=== PATIENT | male | born 1990 | race Caucasian/White ===

== ENCOUNTER 2016-08-07 02:26 | Emergency (ER) | payer SELFPAY ==
[~2016-08-07] VITALS: Ht 167.6 cm; Wt 54.0 kg
[~2016-08-07 02:26] MED LIST: AC325T; BSP10T PO; CLIN300C3 PO; CLOR15TA PO; CLOR7.5T3 PO; FOLI1TAB24 PO; HYDR1TAB PO; HYDR1TAB90; MAGN400T6 PO; MULT-1009 PO; MULT-974 PO; QTP25T PO; RT-ALBUINH IH; THIA100T12 PO
[2016-08-07] MEDS ORDERED: NS IV 1000 ML 1,000 ML IV ONE (02:42)
[2016-08-07] MEDS ORDERED: LORazepam INJ 2 MG/ML (ATIVAN) VIAL IVP ONE (02:45)
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
[2016-08-07 03:05] LABS: BASOPHILS # (AUTO) 0.1 10^3/uL (0.0-0.1); BASOPHILS % (AUTO) 1 % (0-10); EOSINOPHILS # (AUTO) 0.1 10^3/uL (0.0-0.3); EOSINOPHILS % (AUTO) 1 % (0-10); LYMPHOCYTES # (AUTO) 2.5 X 10^3 (1.0-4.0); LYMPHOCYTES % (AUTO) 24 % (12-44); MEAN CORPUSCULAR HEMOGLOBIN 32 PG (25-34); MEAN CORPUSCULAR HGB CONC 35 G/DL (32-36); MEAN CORPUSCULAR VOLUME 91 FL (80-99); MEAN PLATELET VOLUME 8.7 FL (7.4-10.4); MONOCYTES # (AUTO) 0.9 X 10^3 (0.0-1.0); MONOCYTES % (AUTO) 9 % (0-12); NEUTROPHILS # (AUTO) 6.8 X 10^3 (1.8-7.8); NEUTROPHILS % (AUTO) 65 % (42-75); PLATELET COUNT 301 10^3/uL (130-400); RED BLOOD COUNT 5.09 10^6/uL (4.35-5.85); RED CELL DISTRIBUTION WIDTH 12.3 % (10.0-14.5); WHITE BLOOD COUNT 10.4 10^3/uL (4.3-11.0)
[2016-08-07 03:25] LABS: ALANINE AMINOTRANSFERASE 18 U/L (0-55); ALBUMIN 4.7 G/DL (3.2-4.5); ANION GAP 12 MMOL/L (5-14); ASPARTATE AMINO TRANSFERASE 13 U/L (5-34); BILIRUBIN,TOTAL 0.4 MG/DL (0.1-1.0); BLOOD UREA NITROGEN 19 MG/DL (7-18); BUN/CREATININE RATIO 19; CALCIUM 9.6 MG/DL (8.5-10.1); CARBON DIOXIDE 24 MMOL/L (21-32); CHLORIDE 103 MMOL/L (98-107); CREATININE SERUM 1.02 MG/DL (0.60-1.30); GFR ESTIMATED > 60; GLUCOSE 88 MG/DL (70-105); MAGNESIUM 2.4 MG/DL (1.8-2.4); POTASSIUM 4.5 MMOL/L (3.6-5.0); SALICYLATE < 5.0 MG/DL (5.0-20.0); SODIUM 139 MMOL/L (135-145); TOTAL PROTEIN 7.4 G/DL (6.4-8.2)
[2016-08-07 03:30] LABS: ACETAMINOPHEN < 10 UG/ML (10-30); ALCOHOL < 10 MG/DL (<10)
[2016-08-07 04:02] VITALS: BP 126/73
== END 2016-08-07 04:02 | disposition home or self-care (01) ==
LOC: EDUNIT# 02:26 → ER 02:30
DX: F15.10 Other stimulant abuse, uncomplicated (principal); F22 Delusional disorders; F12.10 Cannabis abuse, uncomplicated; F17.210 Nicotine dependence, cigarettes, uncomplicated
CPT/HCPCS: 36415; 80053; 80306; 80320; 80329; 83735; 84443; 85025; 96361; 96374

== ENCOUNTER 2016-11-15 13:41 | Emergency (ER) | payer SELFPAY ==
[~2016-11-15] VITALS: Ht 172.7 cm; Wt 70.3 kg
[2016-11-15] MEDS ORDERED: CLON1TAB3 (13:50)
[2016-11-15] MEDS ORDERED: CEPH-507 PO (14:06)
[2016-11-15] MEDS ORDERED: SULF1TAB35 PO (14:06)
--- NOTE | 2016-11-15 14:06 | ED Integumentary General ---
General Chief Complaint: Skin/Wound Problems Stated Complaint: ABSCESS ON RIGHT HAND Nursing Triage Note: PATIENT REPORTS CUTTING R HAND ON A PIECE OF METAL 6 DAYS AGO. PATIENT REPORTS THE WOUND IS RED AND HAS BEEN DRAINING Source: patient Exam Limitations: no limitations History of Present Illness Time seen by provider: 14:02 Initial Comments To ER with a red laceration to the dorsal fifth MCP joint of the right hand. States that he cut this on a piece of sheet metal about a week ago. He did get some purulent appearing drainage out of this this morning. Timing/Duration: week Location: extremities Allergies and Home Medications Allergies Coded Allergies: No Known Drug Allergies (Unverified , 11/15/16) Home Medications Clonazepam 1 Mg Tablet, #84 (Reported) Constitutional: see HPI EENTM: see HPI Respiratory: no symptoms reported Cardiovascular: no symptoms reported Genitourinary: no symptoms reported Musculoskeletal: see HPI Skin: see HPI Psychiatric/Neurological: No Symptoms Reported Endocrine: No Symptoms Reported Past Kymwmdx-Ayjuwr-Dxayir Hx Patient Social History Alcohol Use: Rarely Uses Recreational Drug Use: No Drug of Choice: METH Smoking Status: Current Everyday Smoker Type Used: Cigarettes Recent Foreign Travel: No Contact w/Someone Who Travel: No Recent Infectious Disease Expo: No Recent Hopitalizations: No Immunizations Up To Date Tetanus Booster (TDap): Unknown Seasonal Allergies Seasonal Allergies: No Surgeries HX Surgeries: Yes (CYST ) Surgeries: Orthopedic Respiratory Hx Respiratory Disorders: Yes Respiratory Disorders: Asthma Cardiovascular Hx Cardiac Disorders: No Neurological Hx Neurological Disorders: No Reproductive System Hx Reproductive Disorders: No Genitourinary Hx Genitourinary Disorders: No Gastrointestinal Hx Gastrointestinal Disorders: No Musculoskeletal Hx Musculoskeletal Disorders: No Endocrine Hx Endocrine Disorders: No HEENT HX ENT Disorders: No Cancer Hx Cancer: No Psychosocial Hx Psychiatric Problems: Yes (polysubstance abuse) Behavioral Health Disorders: Anxiety, Bipolar, Schizophrenia Integumentary HX Skin/Integumentary Disorder: No Blood Transfusions Hx Blood Disorders: No Family Medical History Significant Family History: No Pertinent Family Hx, Psychiatric Problems Physical Exam Vital Signs Vital Sign - Last 12Hours 11/15/16 13:47 Temp 98.4 Pulse 94 Resp 18 B/P (MAP) 125/87 Pulse Ox 99 O2 Delivery Room Air Capillary Refill : Less Than 3 Seconds General Appearance: WD/WN, no apparent distress HEENT: PERRL/EOMI, normal ENT inspection Neck: non-tender, full range of motion Respiratory: no respiratory distress, no accessory muscle use Gastrointestinal: non tender, soft Neurologic/Psychiatric: alert, normal mood/affect Skin: normal color, warm/dry, other (0.5-1 cm laceration over the dorsal aspect of the right MCP joint. He is able to fully make a fist and extend the fingers against resistance. I'm only able to express a minimal amount of serosanguineous appearing drainage. Culture of this was collected and sent to lab. There is minimal surrounding erythema, certainly no cellulitis) Progress/Results/Core Measures Results/Orders My Orders Orders - LILIA VELARDE APRN Wound Culture (11/15/16 14:01) Vital Signs/I&O Vital Sign - Last 12Hours 11/15/16 13:47 Temp 98.4 Pulse 94 Resp 18 B/P (MAP) 125/87 Pulse Ox 99 O2 Delivery Room Air Blood Pressure Mean: 100 Departure Impression Impression: Primary Impression: Infected laceration Disposition: 01 HOME, SELF-CARE Condition: Stable Departure-Patient Inst. Decision time for Depature: 14:04 Referrals: [facility] (PCP/Family) Primary Care Physician Patient Instructions: Laceration Infection Add. Discharge Instructions: 1. Antibiotics as directed 2. Warm compresses to this area you may take a shower and let water run over this area twice daily 3. Return to ER for any worsening 4. All discharge instructions reviewed with patient and/or family. Voiced understanding. Scripts Sulfamethoxazole/Trimethoprim (Bactrim Ds Tablet) 1 Each Tablet 1 EACH PO BID, #14 TAB Prov: LILIA VELARDE APRN 11/15/16 Cephalexin (Keflex) 500 Mg Capsule 500 MG PO QID, #28 CAP Prov: LILIA VELARDE APRN 11/15/16 LILIA VELARDE APRN Nov 15, 2016 14:06
[2016-11-15 14:12] VITALS: BP 125/87
== END 2016-11-15 14:12 | disposition home or self-care (01) ==
LOC: EDUNIT# 13:41 → ER 13:45
DX: L08.9 Local infection of the skin and subcutaneous tissue, unspecified (principal); S61.411A Laceration without foreign body of right hand, initial encounter; F17.210 Nicotine dependence, cigarettes, uncomplicated; W45.8XXA Other foreign body or object entering through skin, initial encounter; Y99.8 Other external cause status
CPT/HCPCS: 87070; 87077; 87186; 87205; 99285

== ENCOUNTER 2016-12-16 18:58 | Emergency (ER) | payer SELFPAY ==
[~2016-12-16] VITALS: Ht 172.7 cm; Wt 72.6 kg
[~2016-12-16 18:58] MED LIST changes: +CEPH-507 PO; +CLON1TAB3; +SULF1TAB35 PO
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
[2016-12-16 19:08] LABS: BASOPHILS # (AUTO) 0.1 10^3/uL (0.0-0.1); BASOPHILS % (AUTO) 1 % (0-10); EOSINOPHILS # (AUTO) 0.1 10^3/uL (0.0-0.3); EOSINOPHILS % (AUTO) 1 % (0-10); LYMPHOCYTES # (AUTO) 2.6 X 10^3 (1.0-4.0); LYMPHOCYTES % (AUTO) 34 % (12-44); MEAN CORPUSCULAR HEMOGLOBIN 31 PG (25-34); MEAN CORPUSCULAR HGB CONC 34 G/DL (32-36); MEAN CORPUSCULAR VOLUME 92 FL (80-99); MEAN PLATELET VOLUME 9.5 FL (7.4-10.4); MONOCYTES % (AUTO) 12 % (0-12); NEUTROPHILS % (AUTO) 52 % (42-75); PLATELET COUNT 257 10^3/uL (130-400); RED CELL DISTRIBUTION WIDTH 12.1 % (10.0-14.5); WHITE BLOOD COUNT 7.8 10^3/uL (4.3-11.0)
[2016-12-16 19:40] LABS: ALANINE AMINOTRANSFERASE 14 U/L (0-55); ALBUMIN 4.5 G/DL (3.2-4.5); ANION GAP 11 MMOL/L (5-14); ASPARTATE AMINO TRANSFERASE 14 U/L (5-34); BILIRUBIN,TOTAL 0.5 MG/DL (0.1-1.0); BLOOD UREA NITROGEN 21 MG/DL (7-18); BUN/CREATININE RATIO 21; CALCIUM 9.5 MG/DL (8.5-10.1); CARBON DIOXIDE 23 MMOL/L (21-32); CHLORIDE 106 MMOL/L (98-107); GFR ESTIMATED > 60; GLUCOSE 95 MG/DL (70-105); POTASSIUM 3.8 MMOL/L (3.6-5.0); SODIUM 140 MMOL/L (135-145)
[2016-12-16 19:54] LABS: BILIRUBIN,URINE NEGATIVE (NEGATIVE); KETONES,URINE NEGATIVE (NEGATIVE); LEUKOCYTE ESTERASE ,URINE 1+ (NEGATIVE); NITRITE,URINE NEGATIVE (NEGATIVE); PH,URINE 6.5 (5-9); PROTEIN,URINE 1+ (NEGATIVE); UROBILINOGEN,URINE NORMAL (NORMAL)
[2016-12-16 20:02] LABS: SQUAMOUS EPITHELIAL CELL,UR RARE /HPF; WBC,URINE 0-2 /HPF
[2016-12-16 20:23] VITALS: BP 117/81
== END 2016-12-16 20:16 | disposition home or self-care (01) ==
LOC: EDUNIT# 18:58 → ER 18:59
DX: F15.188 Other stimulant abuse with other stimulant-induced disorder (principal)
CPT/HCPCS: 36415; 80053; 80306; 81000; 85025; 99283

== ENCOUNTER 2017-06-16 19:44 | Emergency (ER) | payer SELFPAY ==
[~2017-06-16] VITALS: Ht 172.7 cm; Wt 65.8 kg
[2017-06-16 20:04] LABS: BILIRUBIN,URINE NEGATIVE (NEGATIVE); KETONES,URINE NEGATIVE (NEGATIVE); LEUKOCYTE ESTERASE ,URINE 2+ (NEGATIVE); NITRITE,URINE NEGATIVE (NEGATIVE); PH,URINE 6 (5-9); PROTEIN,URINE NEGATIVE (NEGATIVE); UROBILINOGEN,URINE NORMAL (NORMAL)
--- NOTE | 2017-06-16 20:08 | ED GU-Male ---
General Chief Complaint: -Male Stated Complaint: BURNING DURING URINATION Nursing Triage Note: BURINING WITH URINATION, PENILE DISCHARGE Source: patient Exam Limitations: no limitations History of Present Illness Time seen by provider: 20:08 Initial Comments 18-year-old male patient presents to the emergency department with complaints of burning with urination and penile discharge. Discharge started as green and now is more of a whitish color. In longterm for approximately one month and had had intercourse with his "baby mama" 3 weeks before being incarcerated. Patient was also with another partner 2 weeks prior to that incident. Denies using condoms for contraceptives. Timing/Duration: getting worse, other (3 day onset) Severity/Quality: moderate Location: urethral Radiation: none Activities at Onset: none Prior Genitourinary Problems: none Sexual Kennard History: less than 2 months ago, multiple partners Modifying Factors: Worsens With Urinating Allergies and Home Medications Allergies Coded Allergies: No Known Drug Allergies (Unverified , 11/15/16) Home Medications Ciprofloxacin HCl 500 Mg Tablet, 500 MG PO BID, #20 Ref 0 Prescribed by: FLAQUITO BURGER on 06/16/172046 Phenazopyridine HCl 100 Mg Tablet, 100 MG PO Q8H PRN for PAIN-MILD, #14 Ref 0 Prescribed by: FLAQUITO BURGER on 06/16/172046 Constitutional: No chills, No fever, No malaise Respiratory: no symptoms reported Cardiovascular: no symptoms reported Gastrointestinal: see HPI, No abdominal pain, No constipation, No diarrhea, No hematemesis, No heartburn, No loss of appetite, No melena, nausea, No vomiting Genitourinary: see HPI, burning, discharge, dysuria, denies frequency, denies flank pain, denies hematuria, pain Musculoskeletal: no symptoms reported Skin: no symptoms reported Psychiatric/Neurological: No Symptoms Reported All Other Systemes Reviewed Negative Unless Noted: Yes (Negative excepted noted.) Past Bsoguqh-Tkwhnw-Peducc Hx Patient Social History Alcohol Use: Regular Use Number of Drinks Today: AA Alcohol Beverage of Choice: Beer, Whiskey Recreational Drug Use: Yes Drug of Choice: METH, CANNIBUS Smoking Status: Current Everyday Smoker Type Used: Cigarettes 2nd Hand Smoke Exposure: Yes Recent Foreign Travel: No Contact w/Someone Who Travel: No Recent Infectious Disease Expo: No Recent Hopitalizations: No Immunizations Up To Date Tetanus Booster (TDap): Unknown Seasonal Allergies Seasonal Allergies: No Surgeries History of Surgeries: Yes (CYST ) Surgeries: Orthopedic Respiratory History of Respiratory Disorde: Yes Respiratory Disorders: Asthma Cardiovascular History of Cardiac Disorders: No Neurological History of Neurological Disord: No Reproductive System Hx Reproductive Disorders: No Genitourinary History of Genitourinary Disor: No Gastrointestinal History of Gastrointestinal Di: No Musculoskeletal History of Musculoskeletal Dis: No Endocrine History of Endocrine Disorders: No HEENT History of HEENT Disorders: No Cancer History of Cancer: No Psychosocial History of Psychiatric Problem: Yes (polysubstance abuse) Behavioral Health Disorders: Anxiety, Bipolar, Schizophrenia Integumentary History of Skin or Integumenta: No Blood Transfusions History of Blood Disorders: No Reviewed Nursing Assessment Reviewed/Agree w Nursing PMH: Yes Family Medical History Significant Family History: No Pertinent Family Hx, Psychiatric Problems Physical Exam Vital Signs Vital Sign - Last 12Hours 06/16/17 19:53 Temp 96.4 Pulse 84 Resp 18 B/P (MAP) 128/97 Pulse Ox 99 O2 Delivery Room Air Capillary Refill : Less Than 3 Seconds General Appearance: WD/WN, no apparent distress Cardiovascular: regular rate, rhythm, no murmur Respiratory: lungs clear, normal breath sounds, no respiratory distress, no accessory muscle use Gastrointestinal: normal bowel sounds, soft, no organomegaly, No distended, No guarding, No rebound, tenderness (mild epigastric tenderness) Back: normal inspection Extremities: no pedal edema, normal capillary refill Neurologic/Psychiatric: alert, normal mood/affect, oriented x 3 Skin: normal color, warm/dry Progress/Results/Core Measures Suspected Sepsis Recent Fever Within 48 Hours: No Infection Criteria Present: None New/Unexplained Altered Menta: No Sepsis Screen: No Definite Risk Sepsis Diagnosis: SIRS Temperature:96.4 Pulse: 84 Respiratory Rate: 18 Blood Pressure 128 /97 Mean: 107 Results/Orders Lab Results Laboratory Tests Test 06/16/17 20:00 Range/Units Urine Color YELLOW Urine Clarity CLEAR Urine pH 6 5-9 Urine Specific [place] 1.025 H 1.016-1.022 Urine Protein NEGATIVE NEGATIVE Urine Glucose (UA) NEGATIVE NEGATIVE Urine Ketones NEGATIVE NEGATIVE Urine Nitrite NEGATIVE NEGATIVE Urine Bilirubin NEGATIVE NEGATIVE Urine Urobilinogen NORMAL NORMAL MG/DL Urine Leukocyte Esterase 2+ H NEGATIVE Urine RBC (Auto) NEGATIVE NEGATIVE Urine RBC NONE /HPF Urine WBC 25-50 H /HPF Urine Crystals NONE /LPF Urine Bacteria TRACE /HPF Urine Casts NONE /LPF Urine Mucus NEGATIVE /LPF Urine Culture Indicated YES Micro Results Microbiology 06/16/17 Urine Culture - Preliminary, Resulted NO GROWTH My Orders Orders - FLAQUITO BURGER Ua Culture If Indicated (06/16/17 19:54) Neis Leo Dna Urine Test (06/16/17 19:57) Chlamydia Dna Urine Test (06/16/17 19:57) Urine Culture (06/16/17 20:00) Ceftriaxone Injection (Rocephin Injectio (06/16/17 20:45) Azithromycin Tablet (Zithromax Tablet) (06/16/17 20:36) Lidocaine 1% Injection (Xylocaine 1% Inj (06/16/17 20:45) Phenazopyridine Tablet (Pyridium Tablet) (06/16/17 20:45) Vital Signs/I&O Vital Sign - Last 12Hours 06/16/17 06/16/17 19:53 20:54 Temp 96.4 96.8 Pulse 84 82 Resp 18 18 B/P (MAP) 128/97 Pulse Ox 99 100 O2 Delivery Room Air Room Air Capillary Refill : Less Than 3 Seconds Blood Pressure Mean: 107 Departure Communication (Admissions) Progress Notes Laboratory findings discussed with the patient. We'll plan for treatment of chlamydia and gonorrhea at this time. I discussed with the patient that he does need to notify all his previous partners to have testing and possible need for treatment. Patient follow-up with [facility] or [facility] for retesting and further management. Patient verbalizes understanding and agrees with the treatment plan. Impression Impression: Primary Impression: Urinary tract infection Disposition: 01 HOME, SELF-CARE Condition: Improved Departure-Patient Inst. Decision time for Depature: 20:43 Referrals: [facility] (PCP/Family) Primary Care Physician Patient Instructions: Sexually-Transmitted Diseases (DC), Urinary Tract Infection, Adult (DC) Add. Discharge Instructions: All discharge instructions reviewed with patient and/or family. Voiced understanding. Medications as instructed. Tylenol extra strength over-the- counter as directed for pain. Ibuprofen 800 mg by mouth every 8 hours as needed for pain. Drink plenty of fluids. No intercourse until cleared of the infection. Notify all partners that they need to be tested for STDs and possibly the need for treatment. Have them follow up with their primary care provider or health department. Follow-up with your primary care provider or the health department for recheck and to schedule retesting as an outpatient. Call for appointment time tomorrow morning. Return to the emergency department for worsened symptoms or any other concerns. Scripts Phenazopyridine HCl (Pyridium) 100 Mg Tablet 100 MG PO Q8H Y for PAIN-MILD, #14 TAB 0 Refills Prov: FLAQUITO BURGER 06/16/17 Ciprofloxacin HCl (Ciprofloxacin HCl) 500 Mg Tablet 500 MG PO BID, #20 TAB 0 Refills Prov: FLAQUITO BURGER 06/16/17 FLAQUITO BURGER Jun 16, 2017 20:08
[2017-06-16 20:11] LABS: WBC,URINE 25-50 /HPF
[2017-06-16] MEDS ORDERED: AZITHROMYCIN 250 MG TAB (ZITHROMAX) PO STA (20:36)
[2017-06-16] MEDS ORDERED: PHENAZOPYRIDINE 100 MG (PYRIDIUM) TABLET PO ONE (20:45)
[2017-06-16] MEDS ORDERED: LIDOCAINE 1% INJ 20 ML (XYLOCAINE) VIAL INJ ONE (20:45)
[2017-06-16] MEDS ORDERED: cefTRIAXone 1 GM (ROCEPHIN) VIAL IM ONE (20:45)
[2017-06-16] MEDS ORDERED: PHEN-639 PO (20:47)
[2017-06-16] MEDS ORDERED: CIPR500T4 PO (20:47)
[2017-06-16 20:54] VITALS: BP 126/87
[2017-06-20 06:59] LABS: CHLAMYDIA DNA URINE Not Detected (Not Detected); NEISSERIA GONORRHEA DNA URINE Not Detected (Not Detected)
== END 2017-06-16 20:54 | disposition home or self-care (01) ==
LOC: EDUNIT# 19:44 → ER 19:47
DX: N39.0 Urinary tract infection, site not specified (principal); J45.909 Unspecified asthma, uncomplicated; F41.9 Anxiety disorder, unspecified; F20.9 Schizophrenia, unspecified; F31.9 Bipolar disorder, unspecified; F12.10 Cannabis abuse, uncomplicated; F15.10 Other stimulant abuse, uncomplicated; F17.210 Nicotine dependence, cigarettes, uncomplicated
CPT/HCPCS: 36415; 81000; 87088; 87491; 87591; 99284

== ENCOUNTER 2017-09-30 23:06 | Emergency (ER) | payer SELFPAY ==
[~2017-09-30] VITALS: Ht 170.2 cm; Wt 65.8 kg
[~2017-09-30 23:06] MED LIST changes: +CIPR500T4 PO; +PHEN-639 PO
[2017-09-30 23:26] VITALS: BP 108/84
--- NOTE | 2017-09-30 23:45 | ED EENT ---
History of Present Illness General Chief Complaint: Oral/Throat Problems Stated Complaint: THROAT PAIN Nursing Triage Note: pt presents to er with complaint of throat pain. states he feels like the "bone in the front of his neck fell down into his chest". also complaining of a knot on back of neck Source: patient Exam Limitations: no limitations History of Present Illness Date Seen by Provider: Sep 30, 2017 Time Seen by Provider: 23:30 Initial Comments Patient presents to the ER by private conveyance with a chief complaint that he felt that he had a vertebra out of place so one of his friends was popping his neck. He then felt a bone fall out of his neck down into his chest. He says having some chest pain and would like an x-ray and/or CT scan of the neck to find bone. Patient points to the right side of his larynx and says that there is a bone dislodged from there. He denies any history of trauma, fights or being hit or struck across the neck. He is not having any change in his voice he says he is not having a hard time swallowing fluids but he says it does hurt when he takes a deep breath. Allergies and Home Medications Allergies Coded Allergies: No Known Drug Allergies (Unverified , 11/15/16) Home Medications Ciprofloxacin HCl 500 Mg Tablet, 500 MG PO BID Prescribed by: FLAQUITO BURGER on 06/16/172046 Phenazopyridine HCl 100 Mg Tablet, 100 MG PO Q8H PRN for PAIN-MILD Prescribed by: FLAQUITO BURGER on 06/16/172046 Patient Home Medication List Home Medication List Reviewed: Yes Review of Systems Constitutional: no symptoms reported, see HPI Past Zwryvwt-Fbzjbi-Uhzfbh Hx Patient Social History Alcohol Beverage of Choice: Beer, Whiskey Drug of Choice: METH, CANNIBUS Type Used: Cigarettes 2nd Hand Smoke Exposure: Yes Recent Foreign Travel: No Contact w/Someone Who Travel: No Recent Infectious Disease Expo: No Recent Hopitalizations: No Immunizations Up To Date Tetanus Booster (TDap): Unknown Seasonal Allergies Seasonal Allergies: No Surgeries History of Surgeries: Yes (CYST ) Surgeries: Orthopedic Respiratory History of Respiratory Disorde: Yes Respiratory Disorders: Asthma Cardiovascular History of Cardiac Disorders: No Neurological History of Neurological Disord: No Reproductive System Hx Reproductive Disorders: No Genitourinary History of Genitourinary Disor: No Gastrointestinal History of Gastrointestinal Di: No Musculoskeletal History of Musculoskeletal Dis: No Endocrine History of Endocrine Disorders: No HEENT History of HEENT Disorders: No Cancer History of Cancer: No Psychosocial History of Psychiatric Problem: Yes (polysubstance abuse) Behavioral Health Disorders: Anxiety, Bipolar, Schizophrenia Integumentary History of Skin or Integumenta: No Blood Transfusions History of Blood Disorders: No Family Medical History Significant Family History: No Pertinent Family Hx, Psychiatric Problems Physical Exam Vital Signs Vital Signs - First Documented 09/30/17 23:26 Temp 98.0 Pulse 80 Resp 20 B/P (MAP) 108/84 (92) Pulse Ox 95 General Appearance: other (disheveled, distracted, agitated) Eyes: bilateral eye normal inspection, bilateral eye PERRL, bilateral eye EOMI Ears: bilateral ear auricle normal Nose: normal inspection, No active bleeding Mouth/Throat: other (oral mucosa is very dry with a white plaque on his tongue. He is able to move his tongue in all planes without any pain or discomfort.) Neck: non-tender, full range of motion, supple, normal inspection, other (few small scattered anterior lymphadenopathy bilaterally but no evidence of trauma, erythema, skin injury, dislocation, fracture or dislocation of the hyoid bone and/or cartilage of the larynx. Thyroid is midline, normal with nonnodular texture.) Skin: other (red staining on his fingertips that maybe dye or blood) Progress/Results/Core Measures Results/Orders Vital Signs/I&O Vital Sign - Last 12Hours 09/30/17 23:26 Temp 98.0 Pulse 80 Resp 20 B/P (MAP) 108/84 (92) Pulse Ox 95 Blood Pressure Mean: 92 Progress Note : Time: 23:43 Progress Note While examining the patient and trying to determine what his concern was it does not seem that he has a foreign body rather he believes that part of his bony/cartilaginous larynx has displaced itself and fallen into his chest. The patient medially became enraged as we tried to discuss the possibilities of what might be causing his symptoms and demented the CT scan of his neck and chest. He was no longer willing to give any further history or clinical examination and said he would go to a different hospital to be examined and left AGAINST MEDICAL ADVICE. Departure Impression Impression: Primary Impression: Anterior neck pain Disposition: 07 AGAINST MEDICAL ADVICE Condition: Against Medical Advice Departure-Patient Inst. Decision time for Depature: 23:45 Referrals: [facility] (PCP/Family) Primary Care Physician Copy Copies To 1: JESSICA ARITA TITUS J Sep 30, 2017 23:45
--- OUTSIDE RECORDS SUMMARY | 2017-10-01 14:19 | XMS REPORT | Continuity of Care Document ---
Author Author [facility] Organization [facility] Address Unknown Phone Unavailable Allergies Active Description Code Type Severity Reaction Onset Reported/Identified Relationship to Patient Clinical Status Yes Penicillins [id number] Drug Allergy Mild N/A 11/02/2008 Yes No Known Drug Allergies [id number] Drug Allergy Unknown N/A 11/15/2016 Medications There is no data. Problems Date Dx Coded Attending Type Code Diagnosis Diagnosed By 01/28/2013 LINWOOD HERRERA, MARTHA Arreaga Ot 296.80 BIPOLAR DISORDER, UNSPECIFIED 01/28/2013 MARTHA PALUMBO MD Ot 300.00 ANXIETY STATE NOS 01/28/2013 AMRTHA PALUMBO MD Ot 305.20 CANNABIS ABUSE-UNSPEC 01/28/2013 MARTHA PALUMBO MD Ot 305.70 AMPHETAMINE ABUSE-UNSPEC 01/28/2013 MARTHA PALUMBO MD Ot V62.84 SUICIDAL IDEATION 01/28/2013 MARTHA PALUMBO MD Ot V62.85 HOMICIDAL IDEATION 03/01/2013 ANN MARIE HERRERA, FARIDA Craven Ot 789.00 ABDOMINAL PAIN, UNSPECIFIED SITE 03/24/2015 FLAQUITO SULLIVAN Ot 291.81 ALCOHOL WITHDRAWAL 03/24/2015 FLAQUITO SULLIVAN Ot 305.00 ALCOHOL ABUSE-UNSPEC 03/24/2015 FLAQUITO SULLIVAN Ot 305.70 AMPHETAMINE ABUSE-UNSPEC 03/24/2015 FLAQUITO SULLIVAN Ot 305.90 DRUG ABUSE NEC-UNSPEC 06/04/2016 HASMUKH HERRERA, LYDIA Talavera Ot 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 06/04/2016 LYDIA NOE MD Ot R45.1 RESTLESSNESS AND AGITATION 08/07/2016 LINWOOD HERRERA, MARTHA Arreaga Ot F12.10 CANNABIS ABUSE, UNCOMPLICATED 08/07/2016 MARTHA PALUMBO MD Ot F15.10 OTHER STIMULANT ABUSE, UNCOMPLICATED 08/07/2016 ZAKIYA PALUMBO MDSHUA T Ot F17.210 NICOTINE DEPENDENCE, CIGARETTES, UNCOMPL 08/07/2016 LINWOOD HERRERA, MARTHA T Ot F22 DELUSIONAL DISORDERS 08/09/2016 LINWOOD HERRERA, MARTHA T Ot F12.10 CANNABIS ABUSE, UNCOMPLICATED 08/09/2016 LINWOOD HERRERA, MARTHA T Ot F15.10 OTHER STIMULANT ABUSE, UNCOMPLICATED 08/09/2016 LINWOOD HERRERA, MARTHA T Ot F17.210 NICOTINE DEPENDENCE, CIGARETTES, UNCOMPL 08/09/2016 LINWOOD HERRERA, MARTHA T Ot F22 DELUSIONAL DISORDERS 08/13/2016 LINWOOD HERRERA, MARTHA T Ot F12.10 CANNABIS ABUSE, UNCOMPLICATED 08/13/2016 LINWOOD HERRERA, MARTHA T Ot F15.10 OTHER STIMULANT ABUSE, UNCOMPLICATED 08/13/2016 LINWOOD HERRERA, MARTHA T Ot F17.210 NICOTINE DEPENDENCE, CIGARETTES, UNCOMPL 08/13/2016 LINWOOD HERRERA, MARTHA T Ot F22 DELUSIONAL DISORDERS 11/15/2016 LILIA VELARDE APRN Ot F17.210 NICOTINE DEPENDENCE, CIGARETTES, UNCOMPL 11/15/2016 LILIA VELARDE APRN Ot L08.9 LOCAL INFECTION OF THE SKIN AND SUBCUTAN 11/15/2016 LILIA VELARDE APRN Ot S61.411A LACERATION WITHOUT FOREIGN BODY OF RIGHT 11/15/2016 LILIA VELARDE APRN Ot W45.8XXA OTH FOREIGN BODY OR OBJECT ENTERING THRO 11/15/2016 LILIA VELARDE APRN Ot Y99.8 OTHER EXTERNAL CAUSE STATUS 11/16/2016 LILIA VELARDE APRN Ot F17.210 NICOTINE DEPENDENCE, CIGARETTES, UNCOMPL 11/16/2016 LILIA VELARDE APRN Ot L08.9 LOCAL INFECTION OF THE SKIN AND SUBCUTAN 11/16/2016 LILIA VELARDE APRN Ot S61.411A LACERATION WITHOUT FOREIGN BODY OF RIGHT 11/16/2016 LILIA VELARDE APRN Ot W45.8XXA OTH FOREIGN BODY OR OBJECT ENTERING THRO 11/16/2016 LILIA VELARDE APRN Ot Y99.8 OTHER EXTERNAL CAUSE STATUS 11/17/2016 LILIA VELARDE FINISHER DENTURE Ot F17.210 NICOTINE DEPENDENCE, CIGARETTES, UNCOMPL 11/17/2016 LILIA VELARDE FINISHER DENTURE Ot L08.9 LOCAL INFECTION OF THE SKIN AND SUBCUTAN 11/17/2016 LILIA VELARDE APRN Ot S61.411A LACERATION WITHOUT FOREIGN BODY OF RIGHT 11/17/2016 LILIA VELARDE APRN Ot W45.8XXA OTH FOREIGN BODY OR OBJECT ENTERING THRO 11/17/2016 LILIA VELARDE APRN Ot Y99.8 OTHER EXTERNAL CAUSE STATUS 12/16/2016 LILIA VELARDE APRN Ot F15.188 OTHER STIMULANT ABUSE WITH OTHER STIMULA Procedures There is no data. Results Test Result Range Complete blood count (CBC) with automated white blood cell (WBC) differential - 06/04/16 08:14 Blood leukocytes automated count (number/volume) 19.2 10*3/uL 4.3-11.0 Blood erythrocytes automated count (number/volume) 4.37 10*6/uL 4.35-5.85 Venous blood hemoglobin measurement (mass/volume) 14.2 g/dL 13.3-17.7 Blood hematocrit (volume fraction) 40 % 40-54 Automated erythrocyte mean corpuscular volume 91 [foz_us] 80-99 Automated erythrocyte mean corpuscular hemoglobin (mass per erythrocyte) 33 pg 25-34 Automated erythrocyte mean corpuscular hemoglobin concentration measurement ( mass/volume) 36 g/dL 32-36 Automated erythrocyte distribution width ratio 12.0 % 10.0-14.5 Automated blood platelet count (count/volume) 251 10*3/uL 130-400 Automated blood platelet mean volume measurement 9.4 [foz_us] 7.4-10.4 Automated blood neutrophils/100 leukocytes 88 % 42-75 Automated blood lymphocytes/100 leukocytes 5 % 12-44 Blood monocytes/100 leukocytes 6 % 0-12 Automated blood eosinophils/100 leukocytes 0 % 0-10 Automated blood basophils/100 leukocytes 0 % 0-10 Blood neutrophils automated count (number/volume) 16.9 10*3 1.8-7.8 Blood lymphocytes automated count (number/volume) 1.0 10*3 1.0-4.0 Blood monocytes automated count (number/volume) 1.2 10*3 0.0-1.0 Automated eosinophil count 0.0 10*3/uL 0.0-0.3 Automated blood basophil count (count/volume) 0.0 10*3/uL 0.0-0.1 Comprehensive metabolic panel - 06/04/16 08:14 Serum or plasma sodium measurement (moles/volume) 137 mmol/L 135-145 Serum or plasma potassium measurement (moles/volume) 4.5 mmol/L 3.6-5.0 Serum or plasma chloride measurement (moles/volume) 103 mmol/L 98-107 Carbon dioxide 21 mmol/L 21-32 Serum or plasma anion gap determination (moles/volume) 13 mmol/L 5-14 Serum or plasma urea nitrogen measurement (mass/volume) 24 mg/dL 7-18 Serum or plasma creatinine measurement (mass/volume) 1.27 mg/dL 0.60-1.30 Serum or plasma urea nitrogen/creatinine mass ratio 19 NRG Serum or plasma creatinine measurement with calculation of estimated glomerular filtration rate > NRG Serum or plasma glucose measurement (mass/volume) 174 mg/dL 70-105 Serum or plasma calcium measurement (mass/volume) 8.8 mg/dL 8.5-10.1 Serum or plasma total bilirubin measurement (mass/volume) 1.2 mg/dL 0.1-1.0 Serum or plasma alkaline phosphatase measurement (enzymatic activity/volume) 63 U/L 40-136 Serum or plasma aspartate aminotransferase measurement (enzymatic activity/ volume) 20 U/L 5-34 Serum or plasma alanine aminotransferase measurement (enzymatic activity/volume ) 19 U/L 0-55 Serum or plasma protein measurement (mass/volume) 6.2 g/dL 6.4-8.2 Serum or plasma albumin measurement (mass/volume) 4.1 g/dL 3.2-4.5 Serum or plasma troponin i.cardiac measurement (mass/volume) - 06/04/16 08:14 Serum or plasma troponin i.cardiac measurement (mass/volume) < ng/ mL <0.30 Serum or plasma ethanol measurement (mass/volume) - 06/04/16 08:14 Serum or plasma ethanol measurement (mass/volume) < mg/dL <10 Blood manual differential performed detection - 06/04/16 08:14 Blood monocytes/100 leukocytes 7 % NRG Manual blood segmented neutrophils/100 leukocytes 87 % NRG Blood band neutrophils/100 leukocytes 2 % NRG Manual blood lymphocytes/100 leukocytes 4 % NRG Blood erythrocyte morphology finding identification NORMAL NRG Serum or plasma creatine kinase MB measurement (enzymatic activity/volume) - 08:14 Serum or plasma creatine kinase MB measurement (enzymatic activity/volume) 4.0 ng/mL <6.6 Myoglobin, serum - 06/04/16 08:14 Myoglobin, serum 262.1 ng/mL 10.0-92.0 Human immunodeficiency virus (HIV) type 1 and 2 antibody detection - 06/04/16 08:14 Serum HIV 1+2 antibody detection by immunoblot Non-Reactive Non-Reactive Interpretation of HIV-1 and HIV-2 antibody assay See Footnote NRG Complete urinalysis with reflex to culture - 06/04/16 08:57 Urine color determination YELLOW NRG Urine clarity determination CLEAR NRG Urine pH measurement by test strip 6.5 5-9 Specific gravity of urine by test strip 1.015 1.016- 1.022 Urine protein assay by test strip, semi-quantitative 3+ NEGATIVE Urine glucose detection by automated test strip 2+ NEGATIVE Erythrocytes detection in urine sediment by light microscopy 4+ NEGATIVE Urine ketones detection by automated test strip 2+ NEGATIVE Urine nitrite detection by test strip NEGATIVE NEGATIVE Urine total bilirubin detection by test strip NEGATIVE NEGATIVE Urine urobilinogen measurement by automated test strip (mass/volume) NORMAL NORMAL Urine leukocyte esterase detection by dipstick 1+ NEGATIVE Automated urine sediment erythrocyte count by microscopy (number/high power field) NONE NRG Automated urine sediment leukocyte count by microscopy (number/high power field ) [HPF] NRG Bacteria detection in urine sediment by light microscopy MODERATE NRG Crystals detection in urine sediment by light microscopy PRESENT NRG Casts detection in urine sediment by light microscopy NONE NRG Mucus detection in urine sediment by light microscopy NEGATIVE NRG Complete urinalysis with reflex to culture NO NRG Amorphous sediment detection in urine sediment by light microscopy MOD EVERT URATES NRG Urine drug screening test - 06/04/16 08:57 Urine phencyclidine detection by screening method NEGATIVE NEGATIVE Urine benzodiazepines detection by screening method POSITIVE NEGATIVE Urine cocaine detection NEGATIVE NEGATIVE Urine amphetamines detection by screening method POSITIVE NEGATIVE Urine methamphetamine detection by screening method POSITIVE NEGATIVE Urine cannabinoids detection by screening method NEGATIVE NEGATIVE Urine opiates detection by screening method NEGATIVE NEGATIVE Urine barbiturates detection NEGATIVE NEGATIVE Screening urine tricyclic antidepressants detection NEGATIVE NEGATIVE Urine methadone detection by screening method NEGATIVE NEGATIVE Urine oxycodone detection NEGATIVE NEGATIVE Urine propoxyphene detection NEGATIVE NEGATIVE Urine drug screening test - 08/07/16 02:49 Urine phencyclidine detection by screening method NEGATIVE NEGATIVE Urine benzodiazepines detection by screening method NEGATIVE NEGATIVE Urine cocaine detection NEGATIVE NEGATIVE Urine amphetamines detection by screening method POSITIVE NEGATIVE Urine methamphetamine detection by screening method NEGATIVE NEGATIVE Urine cannabinoids detection by screening method POSITIVE NEGATIVE Urine opiates detection by screening method NEGATIVE NEGATIVE Urine barbiturates detection NEGATIVE NEGATIVE Screening urine tricyclic antidepressants detection NEGATIVE NEGATIVE Urine methadone detection by screening method NEGATIVE NEGATIVE Urine oxycodone detection NEGATIVE NEGATIVE Urine propoxyphene detection NEGATIVE NEGATIVE Complete blood count (CBC) with automated white blood cell (WBC) differential - 08/07/16 02:59 Blood leukocytes automated count (number/volume) 10.4 10*3/uL 4.3-11.0 Blood erythrocytes automated count (number/volume) 5.09 10*6/uL 4.35-5.85 Venous blood hemoglobin measurement (mass/volume) 16.1 g/dL 13.3-17.7 Blood hematocrit (volume fraction) 46 % 40-54 Automated erythrocyte mean corpuscular volume 91 [foz_us] 80-99 Automated erythrocyte mean corpuscular hemoglobin (mass per erythrocyte) 32 pg 25-34 Automated erythrocyte mean corpuscular hemoglobin concentration measurement ( mass/volume) 35 g/dL 32-36 Automated erythrocyte distribution width ratio 12.3 % 10.0-14.5 Automated blood platelet count (count/volume) 301 10*3/uL 130-400 Automated blood platelet mean volume measurement 8.7 [foz_us] 7.4-10.4 Automated blood neutrophils/100 leukocytes 65 % 42-75 Automated blood lymphocytes/100 leukocytes 24 % 12-44 Blood monocytes/100 leukocytes 9 % 0-12 Automated blood eosinophils/100 leukocytes 1 % 0-10 Automated blood basophils/100 leukocytes 1 % 0-10 Blood neutrophils automated count (number/volume) 6.8 10*3 1.8-7.8 Blood lymphocytes automated count (number/volume) 2.5 10*3 1.0-4.0 Blood monocytes automated count (number/volume) 0.9 10*3 0.0-1.0 Automated eosinophil count 0.1 10*3/uL 0.0-0.3 Automated blood basophil count (count/volume) 0.1 10*3/uL 0.0-0.1 Comprehensive metabolic panel - 08/07/16 02:59 Serum or plasma sodium measurement (moles/volume) 139 mmol/L 135-145 Serum or plasma potassium measurement (moles/volume) 4.5 mmol/L 3.6-5.0 Serum or plasma chloride measurement (moles/volume) 103 mmol/L 98-107 Carbon dioxide 24 mmol/L 21-32 Serum or plasma anion gap determination (moles/volume) 12 mmol/L 5-14 Serum or plasma urea nitrogen measurement (mass/volume) 19 mg/dL 7-18 Serum or plasma creatinine measurement (mass/volume) 1.02 mg/dL 0.60-1.30 Serum or plasma urea nitrogen/creatinine mass ratio 19 NRG Serum or plasma creatinine measurement with calculation of estimated glomerular filtration rate > NRG Serum or plasma glucose measurement (mass/volume) 88 mg/dL 70-105 Serum or plasma calcium measurement (mass/volume) 9.6 mg/dL 8.5-10.1 Serum or plasma total bilirubin measurement (mass/volume) 0.4 mg/dL 0.1-1.0 Serum or plasma alkaline phosphatase measurement (enzymatic activity/volume) 77 U/L 40-136 Serum or plasma aspartate aminotransferase measurement (enzymatic activity/ volume) 13 U/L 5-34 Serum or plasma alanine aminotransferase measurement (enzymatic activity/volume ) 18 U/L 0-55 Serum or plasma protein measurement (mass/volume) 7.4 g/dL 6.4-8.2 Serum or plasma albumin measurement (mass/volume) 4.7 g/dL 3.2-4.5 Magnesium - 08/07/16 02:59 Magnesium 2.4 mg/dL 1.8-2.4 Serum or plasma thyrotropin measurement by detection limit <=0.05 miu/l (units/ volume) - 08/07/16 02:59 Serum or plasma thyrotropin measurement by detection limit <=0.05 miu/l (units/ volume) 2.89 u[iU]/mL 0.35-4.94 Serum or plasma salicylates measurement (mass/volume) - 08/07/16 02:59 Serum or plasma salicylates measurement (mass/volume) < mg/dL 5.0-20.0 Serum or plasma acetaminophen measurement (mass/volume) - 08/07/16 02:59 Serum or plasma acetaminophen measurement (mass/volume) < ug/mL 10-30 Serum or plasma ethanol measurement (mass/volume) - 08/07/16 02:59 Serum or plasma ethanol measurement (mass/volume) < mg/dL <10 Gram stain microscopy - 11/15/16 14:15 GRAM STAIN RESULT NO BACTERIA NRG Bacteria identification in wound by culture - 11/15/16 14:15 Bacteria identification in wound by culture [id number] NRG FREE TEXT EXTERNAL SENSITIVITY REPORTED 11/16 15:11 NRG QUANTITY OF GROWTH Moderate Growth NRG Bacterial susceptibility panel - 11/15/16 14:15 Oxacillin susceptibility test by minimum inhibitory concentration < = NRG Gentamicin susceptibility test by minimum inhibitory concentration < = NRG Clindamycin susceptibility test by minimum inhibitory concentration <= NRG Erythromycin susceptibility test by minimum inhibitory concentration <= NRG Trimethoprim/sulfamethoxazole susceptibility test by minimum inhibitoryconcentration <= NRG Vancomycin susceptibility test by minimum inhibitory concentration 1 NRG Levofloxacin susceptibility test by minimum inhibitory concentration 0.25 NRG Rifampin susceptibility test by minimum inhibitory concentration <= NRG Tetracycline susceptibility test by minimum inhibitory concentration <= NRG Complete blood count (CBC) with automated white blood cell (WBC) differential - 12/16/16 19:02 Blood leukocytes automated count (number/volume) 7.8 10*3/uL 4.3-11.0 Blood erythrocytes automated count (number/volume) 4.40 10*6/uL 4.35-5.85 Venous blood hemoglobin measurement (mass/volume) 13.8 g/dL 13.3-17.7 Blood hematocrit (volume fraction) 40 % 40-54 Automated erythrocyte mean corpuscular volume 92 [foz_us] 80-99 Automated erythrocyte mean corpuscular hemoglobin (mass per erythrocyte) 31 pg 25-34 Automated erythrocyte mean corpuscular hemoglobin concentration measurement ( mass/volume) 34 g/dL 32-36 Automated erythrocyte distribution width ratio 12.1 % 10.0-14.5 Automated blood platelet count (count/volume) 257 10*3/uL 130-400 Automated blood platelet mean volume measurement 9.5 [foz_us] 7.4-10.4 Automated blood neutrophils/100 leukocytes 52 % 42-75 Automated blood lymphocytes/100 leukocytes 34 % 12-44 Blood monocytes/100 leukocytes 12 % 0-12 Automated blood eosinophils/100 leukocytes 1 % 0-10 Automated blood basophils/100 leukocytes 1 % 0-10 Blood neutrophils automated count (number/volume) 4.0 10*3 1.8-7.8 Blood lymphocytes automated count (number/volume) 2.6 10*3 1.0-4.0 Blood monocytes automated count (number/volume) 1.0 10*3 0.0-1.0 Automated eosinophil count 0.1 10*3/uL 0.0-0.3 Automated blood basophil count (count/volume) 0.1 10*3/uL 0.0-0.1 Comprehensive metabolic panel - 12/16/16 19:02 Serum or plasma sodium measurement (moles/volume) 140 mmol/L 135-145 Serum or plasma potassium measurement (moles/volume) 3.8 mmol/L 3.6-5.0 Serum or plasma chloride measurement (moles/volume) 106 mmol/L 98-107 Carbon dioxide 23 mmol/L 21-32 Serum or plasma anion gap determination (moles/volume) 11 mmol/L 5-14 Serum or plasma urea nitrogen measurement (mass/volume) 21 mg/dL 7-18 Serum or plasma creatinine measurement (mass/volume) 1.00 mg/dL 0.60-1.30 Serum or plasma urea nitrogen/creatinine mass ratio 21 NRG Serum or plasma creatinine measurement with calculation of estimated glomerular filtration rate > NRG Serum or plasma glucose measurement (mass/volume) 95 mg/dL 70-105 Serum or plasma calcium measurement (mass/volume) 9.5 mg/dL 8.5-10.1 Serum or plasma total bilirubin measurement (mass/volume) 0.5 mg/dL 0.1-1.0 Serum or plasma alkaline phosphatase measurement (enzymatic activity/volume) 67 U/L 40-136 Serum or plasma aspartate aminotransferase measurement (enzymatic activity/ volume) 14 U/L 5-34 Serum or plasma alanine aminotransferase measurement (enzymatic activity/volume ) 14 U/L 0-55 Serum or plasma protein measurement (mass/volume) 7.0 g/dL 6.4-8.2 Serum or plasma albumin measurement (mass/volume) 4.5 g/dL 3.2-4.5 Complete urinalysis with reflex to culture - 12/16/16 19:40 Urine color determination YELLOW NRG Urine clarity determination CLEAR NRG Urine pH measurement by test strip 6.5 5-9 Specific gravity of urine by test strip 1.020 1.016- 1.022 Urine protein assay by test strip, semi-quantitative 1+ NEGATIVE Urine glucose detection by automated test strip NEGATIVE NEGATIVE Erythrocytes detection in urine sediment by light microscopy NEGATIVE NEGATIVE Urine ketones detection by automated test strip NEGATIVE NEGATIVE Urine nitrite detection by test strip NEGATIVE NEGATIVE Urine total bilirubin detection by test strip NEGATIVE NEGATIVE Urine urobilinogen measurement by automated test strip (mass/volume) NORMAL NORMAL Urine leukocyte esterase detection by dipstick 1+ NEGATIVE Automated urine sediment erythrocyte count by microscopy (number/high power field) NONE NRG Automated urine sediment leukocyte count by microscopy (number/high power field ) [HPF] NRG Bacteria detection in urine sediment by light microscopy NONE NRG Squamous epithelial cells detection in urine sediment by light microscopy RARE NRG Crystals detection in urine sediment by light microscopy NONE NRG Casts detection in urine sediment by light microscopy NONE NRG Mucus detection in urine sediment by light microscopy SMALL NRG Complete urinalysis with reflex to culture NO NRG Urine drug screening test - 12/16/16 19:40 Urine phencyclidine detection by screening method NEGATIVE NEGATIVE Urine benzodiazepines detection by screening method NEGATIVE NEGATIVE Urine cocaine detection NEGATIVE NEGATIVE Urine amphetamines detection by screening method POSITIVE NEGATIVE Urine methamphetamine detection by screening method POSITIVE NEGATIVE Urine cannabinoids detection by screening method NEGATIVE NEGATIVE Urine opiates detection by screening method NEGATIVE NEGATIVE Urine barbiturates detection NEGATIVE NEGATIVE Screening urine tricyclic antidepressants detection NEGATIVE NEGATIVE Urine methadone detection by screening method NEGATIVE NEGATIVE Urine oxycodone detection NEGATIVE NEGATIVE Urine propoxyphene detection NEGATIVE NEGATIVE Complete urinalysis with reflex to culture - 06/16/17 20:00 Urine color determination YELLOW NRG Urine clarity determination CLEAR NRG Urine pH measurement by test strip 6 5-9 Specific gravity of urine by test strip 1.025 1.016- 1.022 Urine protein assay by test strip, semi-quantitative NEGATIVE NEGATIVE Urine glucose detection by automated test strip NEGATIVE NEGATIVE Erythrocytes detection in urine sediment by light microscopy NEGATIVE NEGATIVE Urine ketones detection by automated test strip NEGATIVE NEGATIVE Urine nitrite detection by test strip NEGATIVE NEGATIVE Urine total bilirubin detection by test strip NEGATIVE NEGATIVE Urine urobilinogen measurement by automated test strip (mass/volume) NORMAL NORMAL Urine leukocyte esterase detection by dipstick 2+ NEGATIVE Automated urine sediment erythrocyte count by microscopy (number/high power field) NONE NRG Automated urine sediment leukocyte count by microscopy (number/high power field ) [HPF] NRG Bacteria detection in urine sediment by light microscopy TRACE NRG Crystals detection in urine sediment by light microscopy NONE NRG Casts detection in urine sediment by light microscopy NONE NRG Mucus detection in urine sediment by light microscopy NEGATIVE NRG Complete urinalysis with reflex to culture YES NRG Bacterial urine culture - 06/16/17 20:00 Bacterial urine culture NG NRG Chlamydia DNA amp probe, urine - 06/16/17 20:00 Chlamydia DNA amp probe, urine Not Detected Not Detected Urine Neisseria gonorrhoeae DNA assay - 06/16/17 20:00 Gonorrhea amp DNA-urine Not Detected Not Detected Encounters ACCT No. Visit Date/Time Discharge Status Pt. Type Provider Facility Loc./Unit Complaint [id number] 06/16/2017 19:47:00 06/16/2017 20:54:00 DIS Emergency FLAQUITO SULLIVAN [facility] ER BURNING DURING URINATION [id number] 12/16/2016 18:59:00 12/16/2016 20:16:00 DIS Emergency LILIA VELARDE APRN [facility] ER BURNING SENSATION IN BACK OF NECK [id number] 11/15/2016 13:45:00 11/15/2016 14:12:00 DIS Emergency LILIA VELARDE APRN [facility] ER ABSCESS ON RIGHT HAND [id number] 08/07/2016 02:30:00 08/07/2016 04:02:00 DIS Emergency MARTHA PALUMBO MD [facility] ER DRUGGED WITHOUT CONSENT [id number] 06/04/2016 09:32:00 06/04/2016 21:08:00 DIS Inpatient HASMUKH HERRERA, LYDIA Talavera [facility] ICU DRUG OVERDOSE/TWITCHING [id number] 03/24/2015 13:07:00 03/24/2015 17:37:00 DIS Emergency FLAQUITO SULLIVAN [facility] ER DETOX [id number] 03/01/2013 08:16:00 03/01/2013 11:07:00 DIS Emergency FARIDA JESUS MD [facility] ER ABD PAIN [id number] 01/27/2013 20:58:00 01/28/2013 00:41:00 DIS Emergency MARTHA PALUMBO MD [facility] ER MENTAL EVALUATION [id number] 01/24/2013 11:35:00 01/24/2013 13:25:00 DIS Emergency
== END 2017-09-30 23:40 | disposition left against medical advice (07) ==
LOC: EDUNIT# 23:06 → ER 23:08
DX: M54.2 Cervicalgia (principal); F41.9 Anxiety disorder, unspecified; F31.9 Bipolar disorder, unspecified; F20.9 Schizophrenia, unspecified; J45.909 Unspecified asthma, uncomplicated; F12.90 Cannabis use, unspecified, uncomplicated; F14.90 Cocaine use, unspecified, uncomplicated; Z77.22 Contact with and (suspected) exposure to environmental tobacco smoke (acute) (chronic); Z98.890 Other specified postprocedural states
CPT/HCPCS: 99281

== ENCOUNTER 2022-04-27 09:03 | Inpatient (IN) | payer OTHER ==
[~2022-04-27] VITALS: Ht 175 cm; Wt 68.2 kg
[~2022-04-27 09:03] MED LIST changes: -CIPR500T4 PO; +CIPR500T5 PO; +CLON1TAB13; -CLON1TAB3; -FOLI1TAB24 PO; +FOLI1TAB33 PO; -MAGN400T6 PO; +MGX400T PO; -SULF1TAB35 PO; +SULF1TAB38 PO
[2022-04-27] MEDS ORDERED: ANTACID SUSP 30 ML UDC (MYLANTA) PO PRN (10:15)
[2022-04-27] MEDS ORDERED: polyethylene glycoL POWDER 17 GM (MIRALAX) PACK PO PRN (10:15)
[2022-04-27] MEDS ORDERED: ONDANSETRON 4 MG/2 ML (SDV) Z0FRAN IV PRN (10:15)
[2022-04-27] MEDS ORDERED: MELATONIN 3 MG TABLET PO PRN (10:15)
--- NOTE | 2022-04-27 10:50 | History & Physical-Hospitalist ---
History of Present Illness HPI/Chief Complaint Patient is a 31-year-old male with past medical history of polysubstance abuse who presented to the emergency department due to malaise and fever. He tells me that he "feels like shit." And is unable to elaborate further. The PA at the [facility] emergency room [facility]. He was found to be quite febrile with a temperature of 38-39 there. He was worked up extensively for infection without a source being found. Despite treatment for his fever his temperature continued to rise. She denied any confusion or muscle rigidity at the time. He was transferred here to the ICU for further work-up. On my exam he is able to answer simple questions and just states that he does not feel well. He is oriented to everything but the month. He was quite hypotensive on arrival with a blood pressure of 67/32 but responded to IV fluids and came up to 1 teens systolically. He does endorse a history of meth use. He states he did bath salts yesterday with meth in it. He denies IV drug use and states that he smokes it. Source: patient Date Seen 04/27/22 Time Seen by a Provider: 10:50 Attending Physician No,Local Physician PCP Admitting Physician: Steven Goss MD Attending Physician: Steven Goss MD Referring Physician Date of Admission Apr 27, 2022 at 10:25 Home Medications & Allergies Home Medications Reviewed patient Home Medication Reconciliation performed by pharmacy medication reconciliations cephalometric technician and/or nursing. Patients Allergies have been reviewed. Allergies Allergies Coded Allergies No Known Drug Allergies (Unverified11/15/16) Past Koljyhc-Eyktls-Xewibb Hx Patient Social History Living Status: transferred from group home Tobacco Use?: Yes Substance type: Amphetamines, Other (bath salts) Seasonal Allergies Seasonal Allergies: No Current Status Primary Language: Surinamese Past Medical History Surgeries: Orthopedic, Tonsillectomy Asthma Anxiety, Bipolar, Schizophrenia Blood Disorders: No Family Medical History No Pertinent Family Hx, Psychiatric Problems Waldo Ramos ([phone]- name/number given by patient but is not consistent with what is in his chart) is alive and who he requests to be his decision maker Review of Systems Constitutional: chills, fever, malaise EENTM: No ear pain, No mouth pain Respiratory: No cough Cardiovascular: no symptoms reported Gastrointestinal: no symptoms reported Musculoskeletal: back pain, muscle cramps Skin: no symptoms reported Psychiatric/Neurological: No Symptoms Reported Physical Exam Physical Exam Vital Signs Vital Signs - First Documented 04/27/22 04/27/22 10:30 10:45 Temp 39.9 Pulse 106 Resp 27 B/P (MAP) 108/84 (92) Pulse Ox 99 O2 Delivery Room Air Capillary Refill : Height, Weight, BMI Height: 5'7.00" Weight: 145lbs. 0oz. 65.210667ke; 19.2 BMI Method:Stated General Appearance: Mild Distress, Thin HEENT: PERRL/EOMI, Moist Mucous Membranes; No Scleral Icterus (L), No Scleral Icterus (R) Neck: Normal Inspection, Supple Respiratory: Lungs Clear, No Accessory Muscle Use, No Respiratory Distress Cardiovascular: No JVD, No Murmur, Tachycardia Gastrointestinal: Normal Bowel Sounds, Non Tender, Soft Extremity: Normal Capillary Refill, No Calf Tenderness, No Pedal Edema Neurologic/Psychiatric: Alert, Oriented x3 (exception for month- said Septemeber) Skin: Mottled (feet, hands, and arms) Results Results/Procedures Labs Laboratory Tests 04/27/22 11:10 Patient resulted labs reviewed. Assessment/Plan Admission Diagnosis Fever Admission Status: Inpatient Order (span 2 midnights) Reason for Inpatient Admission: see below Assessment and Plan Fever Polysubstance abuse Hypotension No evidence of sepsis or infection Concerning for neuroleptic malignant syndrome Ativan ordered Dantrolene given- will repeat dose Spoke with [facility] hotline regrading repeat dose of dantrolene and they are in agreement with treatment Sp[facility] with Dr [facility] of [facility] and he increased dose of ativan PICC placed Low threshold for intubation if mentation worsens History of alcohol dependence so will add thiamine Diagnosis/Problems Diagnosis/Problems (1) Neuroleptic malignant syndrome (2) Methamphetamine use (3) Bath salt overdose (4) Polysubstance abuse Status: Acute (5) Alcohol abuse Status: Acute STEVEN GOSS MD Apr 27, 2022 10:50 am
--- NOTE | 2022-04-27 10:56 | Tele-ICU Progress Note ---
Subjective Date Seen by a Provider: Apr 27, 2022 Subjective/Events-last exam This virtual visit was conducted using real time audio/video. Thank you for asking us to see this patient for respiratory insufficiency due to fever and elevated temp, creatine kinase. Ingested bath salts and meth while in shelter. Recent events: PE: Temp 40 degrees. No perspiration. BP 92/78. O2 sat 96% on RA HEENT: No obvious masses, adenopathy or JVD. Chest: clear to auscultation. CV: RRR S1 S2 No murmur or added sounds. Abd: Non-tender. Bowel sounds Y. : Unremarkable. Benavidez [employer]ENTICE/psychiatric: Grossly intact. No obvious focal findings. No rigidity. Oriented except to date. Extremities: No edema. Capillary refill < 3 seconds. Skin: unremarkable. Results: not yet available. Available chart reviewed. Visualized on camera, rest of exam as per RN. A/P: Critical Care: critically ill patient. Cont.IVF and symptomatic relief. Will repeat Creatine Kinase. Discussed with RN Tamara and Dr. Moore. Asked RN to reach out to eICU if any questions or concerns later. Time spent with patient/coordination of care with other health professionals (mins): 28 Sepsis Event Evaluation Height, Weight, BMI Height: 5'7.00" Weight: 145lbs. 0oz. 65.812295xc; 19.2 BMI Method:Stated Exam Exam Patient acknowledged, consented, and participated in this virtual visit which was conducted using real time audio/video Height & Weight Height: 5'7.00" Weight: 145lbs. 0oz. 65.418890ll; 19.2 BMI Method:Stated General Appearance: No Apparent Distress Peripheral Pulses: 1+ Dorsalis Pedis (R), 1+ Left Dors-Pedis (L) (See free text) Assessment/Plan Assessment/Plan See free text. Critical Care: Critically Ill Patient DANIEL COOL MD Apr 27, 2022 10:56
[2022-04-27] MEDS: ACETAMINOPHEN 325 MG TABLET PO PRN ×2 (11:11→20:55)
[2022-04-27] MEDS: NS IV 1000 ML 1,000 ML IV SCH ×2 (11:12→18:30)
[2022-04-27 11:22] LABS: BASOPHILS % (AUTO) 0 % (0-10); EOSINOPHILS % (AUTO) 0 % (0-10); HEMATOCRIT 37 % (40-54); HEMOGLOBIN 12.8 g/dL (13.3-17.7); LYMPHOCYTES # (AUTO) 0.4 10^3/uL (1.0-4.0); LYMPHOCYTES % (AUTO) 3 % (12-44); MEAN CORPUSCULAR HEMOGLOBIN 31 pg (25-34); MEAN CORPUSCULAR HGB CONC 34 g/dL (32-36); MEAN CORPUSCULAR VOLUME 91 fL (80-99); MEAN PLATELET VOLUME 8.9 fL (9.0-12.2); MONOCYTES # (AUTO) 0.3 10^3/uL (0.0-1.0); MONOCYTES % (AUTO) 3 % (0-12); NEUTROPHILS # (AUTO) 12.9 10^3/uL (1.8-7.8); NEUTROPHILS % (AUTO) 94 % (42-75); PLATELET COUNT 140 10^3/uL (130-400); WHITE BLOOD COUNT 13.8 10^3/uL (4.3-11.0)
[2022-04-27] MEDS: LORazepam INJ 2 MG/ML (ATIVAN) VIAL IVP PRN ×4 (11:25→20:49)
[2022-04-27 11:34] LABS: BAND NEUTROPHILS 5 %; LYMPHOCYTES % (MANUAL) 6 %; MONOCYTES % (MANUAL) 3 %; NEUTROPHILS % (MANUAL) 86 %; RBC MORPH NORMAL
[2022-04-27 11:46] LABS: FIBRIN DEGRADATION PRODUCTS 1.77 UG/ML (0.00-0.49); INR 1.4 (0.8-1.4); PROTHROMBIN TIME PATIENT 17.3 SEC (12.2-14.7)
[2022-04-27] MEDS ORDERED: IBUPROFEN 600 MG (MOTRIN) TAB PO ONE (11:52)
[2022-04-27] MEDS ORDERED: DANTROLENE 20 MG IV NR (12:00)
[2022-04-27 12:06] LABS: ALBUMIN 3.2 GM/DL (3.2-4.5); CHLORIDE 101 MMOL/L (98-107); SODIUM 130 MMOL/L (135-145)
[2022-04-27 12:08] LABS: CALCIUM 7.7 MG/DL (8.5-10.1)
[2022-04-27 12:09] LABS: GLUCOSE 105 MG/DL (70-105); TOTAL PROTEIN 5.5 GM/DL (6.4-8.2)
[2022-04-27 12:10] LABS: BILIRUBIN,TOTAL 1.3 MG/DL (0.1-1.0); CARBON DIOXIDE 21 MMOL/L (21-32)
[2022-04-27 12:12] LABS: ALKALINE PHOSPHATASE 49 U/L (40-136); CREATININE SERUM 0.81 MG/DL (0.60-1.30); GFR ESTIMATED 119
[2022-04-27 12:13] LABS: BUN/CREATININE RATIO 14
[2022-04-27 12:15] LABS: ALANINE AMINOTRANSFERASE 50 U/L (0-55); CREATINE KINASE 181 U/L (30-200)
[2022-04-27] MEDS: IBUPROFEN 600 MG (MOTRIN) TAB PO SCH ×2 (12:59→18:20)
[2022-04-27] MEDS ORDERED: DANTROLENE 20 MG IV ONE (13:45)
[2022-04-27 13:49] LABS: ABG BASE EXCESS -0.6 MMOL/L (-2.5-2.5); ABG OXYGEN SATURATION 42 % (94-100); ABG PCO2 52 MMHG (35-45); ABG TCO2 25.4 MMOL/L (21.0-31.0)
[2022-04-27 13:58] LABS: ABG PO2 34 MMHG (79-93)
[2022-04-27 13:59] LABS: ABG PH 7.31 (7.37-7.43); ALLENS TEST YES-POS; INSPIRED O2 ROOM AIR; VENTILATOR NO
[2022-04-27] MEDS ORDERED: WATER FOR INJECTION STERILE IV ONE (14:07)
[2022-04-27] MEDS ORDERED: THIAMINE 100 MG (VITAMIN B-1) TAB PO ONE (14:45)
[2022-04-27 17:25] LABS: POTASSIUM 3.6 MMOL/L (3.6-5.0)
[2022-04-27 17:26] LABS: CALCIUM 7.2 MG/DL (8.5-10.1)
[2022-04-27 17:27] LABS: TOTAL PROTEIN 5.2 GM/DL (6.4-8.2)
[2022-04-27 17:31] LABS: CREATININE SERUM 0.66 MG/DL (0.60-1.30)
[2022-04-27 17:42] LABS: CREATINE KINASE MB 0.4 NG/ML (<6.6)
[2022-04-28] MEDS: IBUPROFEN 600 MG (MOTRIN) TAB PO SCH ×5 (00:45→17:18)
[2022-04-28] MEDS: NS IV 1000 ML 1,000 ML IV SCH ×3 (03:21→18:29)
[2022-04-28 04:59] LABS: HEMATOCRIT 40 % (40-54); MEAN CORPUSCULAR HEMOGLOBIN 31 pg (25-34); MEAN CORPUSCULAR HGB CONC 35 g/dL (32-36); MEAN CORPUSCULAR VOLUME 89 fL (80-99); MEAN PLATELET VOLUME 9.3 fL (9.0-12.2); PLATELET COUNT 122 10^3/uL (130-400); WHITE BLOOD COUNT 11.6 10^3/uL (4.3-11.0)
[2022-04-28 05:11] LABS: POTASSIUM 3.4 MMOL/L (3.6-5.0)
[2022-04-28 05:12] LABS: CALCIUM 7.9 MG/DL (8.5-10.1)
[2022-04-28 05:17] LABS: CREATININE SERUM 0.6 MG/DL (0.60-1.30); PHOSPHORUS 2.7 MG/DL (2.3-4.7)
[2022-04-28 05:19] LABS: MAGNESIUM 1.8 MG/DL (1.6-2.4)
[2022-04-28] MEDS ORDERED: NS IV 500 ML 500 ML IV PRN (06:00)
[2022-04-28] MEDS ORDERED: POTASSIUM CL 10MEQ/50ML IVPB 100 ML IV ONE (06:07)
[2022-04-28] MEDS: POTASSIUM CL 10MEQ/50ML IVPB 50 ML IV SCH ×3 (06:09→07:26)
[2022-04-28] MEDS: MAGNESIUM 1 GM/100 ML IVPB 100 ML IV SCH (06:14)
[2022-04-28] MEDS: KCL 20 MEQ TAB (K-DUR) PO SCH (06:14)
[2022-04-28] MEDS: THIAMINE 100 MG (VITAMIN B-1) TAB PO SCH (06:15)
--- NOTE | 2022-04-28 07:44 | Tele-ICU Progress Note ---
Subjective Date Seen by a Provider: Apr 28, 2022 Time Seen by a Provider: 07:39 Subjective/Events-last exam 31 yo M brought from assisted, ingested bath salts with methamphetamine, admitted with with high temp, 39, now 36, On admission to MICU BP 67/32, now 128/87 after IVF Hx of ampthetamine abuse.Potassium low but has been replaced. CK and troponin have been replaced Not very alert, received Ativan last night Sepsis Event Evaluation Height, Weight, BMI Height: 5'7.00" Weight: 145lbs. 0oz. 65.670776ya; 22.29 BMI Method:Stated Focused Exam Lactate Level 04/27/22 13:40: Lactic Acid Level 1.03 Exam Exam Patient acknowledged, consented, and participated in this virtual visit which was conducted using real time audio/video Vital Signs Date Time Temp Pulse Resp B/P (MAP) Pulse Ox O2 Delivery O2 Flow Rate FiO2 04/28/22 06:00 36.4 84 20 99 Room Air 04/28/22 05:00 36.3 85 23 128/87 (101) 98 Room Air 04/28/22 04:00 98 Room Air 04/28/22 04:00 36.3 83 21 131/99 (110) 97 Room Air 04/28/22 03:00 36.2 81 20 136/97 (110) 98 Room Air 04/28/22 02:00 37.0 83 29 115/88 (97) 93 Room Air 04/28/22 01:01 89 04/28/22 01:00 38.2 95 27 126/100 (109) 95 Room Air 04/28/22 00:00 39.0 96 22 110/80 (90) 96 Room Air 04/28/22 00:00 97 Room Air 04/27/22 23:00 39.9 99 25 109/74 (86) 94 Room Air 04/27/22 22:00 40.2 109 32 119/81 (94) 96 Room Air 04/27/22 21:25 39.9 04/27/22 21:00 39.6 110 33 125/86 (99) 94 Room Air 04/27/22 20:55 39.5 04/27/22 20:00 97 Room Air 04/27/22 20:00 38.3 112 26 116/92 (100) 95 Room Air 04/27/22 19:24 105 10/5/22 19:00 37.9 101 40 109/83 (92) 98 Room Air 04/27/22 18:00 38.6 112 17 123/94 (104) 98 Room Air 04/27/22 17:00 39.3 109 21 111/93 (99) 98 Room Air 04/27/22 16:00 40.0 111 21 135/94 (108) 98 Room Air 04/27/22 16:00 98 Room Air 04/27/22 15:00 40.3 112 24 131/87 (102) 98 Room Air 04/27/22 14:00 41.0 114 20 119/81 (94) 97 Room Air 04/27/22 13:00 120 04/27/22 13:00 41.0 115 26 136/92 (107) 97 Room Air 04/27/22 12:00 100 Room Air 04/27/22 12:00 41.0 105 27 101/78 (86) 95 Room Air 04/27/22 11:54 40.5 04/27/22 11:41 41.0 04/27/22 11:11 40.3 04/27/22 11:00 40.2 105 28 115/76 (89) 97 Room Air 04/27/22 10:45 100 Room Air 04/27/22 10:45 39.9 111 27 108/84 (92) 99 Room Air 04/27/22 10:30 106 I & O 04/28/22 07:00 Intake Total 1180 ml Output Total 5950 ml Balance -4770 ml Height & Weight Height: 5'7.00" Weight: 145lbs. 0oz. 65.379350ol; 22.29 BMI Method:Stated General Appearance: Mild Distress, Thin HEENT: PERRL/EOMI, Moist Mucous Membranes; No Scleral Icterus (L), No Scleral Icterus (R) Neck: Normal Inspection, Supple Respiratory: Lungs Clear, No Accessory Muscle Use, No Respiratory Distress Cardiovascular: Regular Rate, Rhythm, No Edema, No JVD, No Murmur, Tachycardia Peripheral Pulses: 1+ Dorsalis Pedis (R), 1+ Left Dors-Pedis (L) (See free text) Gastrointestinal: normal bowel sounds, non tender, soft Extremity: Normal Capillary Refill, No Calf Tenderness, No Pedal Edema Neurologic/Psychiatric: Alert, Oriented x3 (exception for month- said Septemeber), No Motor/Sensory Deficits, Other (lethargic) Skin: Mottled (feet, hands, and arms) Results Lab Laboratory Tests 04/27/22 11:10 04/27/22 16:50 04/28/22 04:50 Assessment/Plan Assessment/Plan Bath salt ingestion, doing better, no sign of rhabdomyolysis, can go to F when fully awake Critical Care: Critically Ill Patient Time spent with patient (mins): 30 CORY JUAREZ MD Apr 28, 2022 07:44
[2022-04-28 07:58] LABS: ALBUMIN 2.9 GM/DL (3.2-4.5)
[2022-04-28 08:01] LABS: TOTAL PROTEIN 5.4 GM/DL (6.4-8.2)
[2022-04-28 08:03] LABS: BILIRUBIN,TOTAL 1.9 MG/DL (0.1-1.0)
[2022-04-28 08:07] LABS: BILIRUBIN,INDIRECT 0.9 MG/DL
--- NOTE | 2022-04-28 08:38 | Progress Note - Hospitalist ---
Subjective HPI/CC On Admission Date Seen by Provider: Apr 28, 2022 Patient is a 31-year-old male with past medical history of polysubstance abuse who presented to the emergency department due to malaise and fever. He tells me that he "feels like shit." And is unable to elaborate further. The PA at the [facility]. He was found to be quite febrile with a temperature of 38-39 there. He was worked up extensively for infection without a source being found. Despite treatment for his fever his temperature continued to rise. She denied any confusion or muscle rigidity at the time. He was transferred here to the ICU for further work-up. On my exam he is able to answer simple questions and just states that he does not feel well. He is oriented to everything but the month. He was quite hypotensive on arrival with a blood pressure of 67/32 but responded to IV fluids and came up to 1 teens systolically. He does endorse a history of meth use. He states he did bath salts yesterday with meth in it. He denies IV drug use and states that he smokes it. Subjective/Events-last exam Pt awake and alert and able to ask for a drink but drowsy. Did not answer any other questions just asked for a drink and food. Focused Exam Lactate Level 04/27/22 13:40: Lactic Acid Level 1.03 Objective Exam Vital Signs Vital Signs Date Time Temp Pulse Resp B/P (MAP) Pulse Ox O2 Delivery O2 Flow Rate FiO2 04/28/22 07:36 36.1 04/28/22 06:00 84 20 99 Room Air Capillary Refill : General Appearance: Thin, Other (drowsy) Respiratory: Lungs Clear, No Respiratory Distress Cardiovascular: No Murmur, Tachycardia Gastrointestinal: Normal Bowel Sounds, Soft Extremity: No Calf Tenderness, No Pedal Edema Neurologic/Psychiatric: Alert, Other (drowsy and mumbling) Skin: No Mottled Results/Procedures Lab Laboratory Tests 04/27/22 11:10 04/27/22 16:50 04/28/22 04:50 Patient resulted labs reviewed. Assessment/Plan Assessment and Plan Assess & Plan/Chief Complaint Neuroleptic Malignant Syndrome Polysubstance abuse Hypotension History of Alcohol Abuse Continue Ativan Dantrolene given x2 yesterday with improvement in temperature Temperature down to 36 today Low threshold for intubation if mentation worsens Continue Thiamine Remain in ICU Liver enzymes improves today CK up slightly but around where it was yesterday in ER DVT ppx: Lovenox Critical Care Critically Ill Patient Diagnosis/Problems Diagnosis/Problems (1) Neuroleptic malignant syndrome (2) Methamphetamine use (3) Bath salt overdose (4) Polysubstance abuse Status: Acute (5) Alcohol abuse Status: Acute STEVEN GOSS MD Apr 28, 2022 08:38
[2022-04-28] MEDS: ENOXAPARIN 40 MG/0.4 ML (LOVENOX) SYR SQ SCH (09:42)
[2022-04-28] MEDS: NICOTINE 14 MG (NICODERM) PATCH TD SCH (10:38)
[2022-04-28] MEDS ORDERED: ACETAMINOPHEN 650 MG SUPP (TYLENOL) PR PRN (12:00)
[2022-04-28] MEDS: LORazepam INJ 2 MG/ML (ATIVAN) VIAL IVP PRN ×3 (12:39→19:43)
[2022-04-28] MEDS ORDERED: DexMEDEtomidine 250 ML DRIP 250 ML IV ONE (14:06)
--- NOTE | 2022-04-28 14:08 | Tele-ICU Progress Note ---
Subjective Date Seen by a Provider: Apr 28, 2022 Time Seen by a Provider: 14:01 Subjective/Events-last exam called for agitation, pulling at lines, tachycardia, temp 38, given 4 mg IV Ativan, will give IV Haldol 2 mg and repeat if needed, Sepsis Event Evaluation Height, Weight, BMI Height: 5'7.00" Weight: 145lbs. 0oz. 65.485980tx; 21.25 BMI Method:Stated Focused Exam Lactate Level 04/27/22 13:40: Lactic Acid Level 1.03 Exam Exam Patient acknowledged, consented, and participated in this virtual visit which was conducted using real time audio/video Vital Signs Date Time Temp Pulse Resp B/P (MAP) Pulse Ox O2 Delivery O2 Flow Rate FiO2 04/28/22 12:54 38.6 04/28/22 12:24 38.2 04/28/22 12:00 38.1 106 20 132/89 (103) 97 Room Air 04/28/22 11:52 38.0 04/28/22 11:00 37.6 105 21 128/99 (109) 97 Room Air 04/28/22 10:00 105 39 126/116 (119) 90 Room Air 04/28/22 09:00 95 18 125/74 (91) 99 Room Air 04/28/22 08:00 98 Room Air 04/28/22 08:00 99 24 117/94 (102) 98 Room Air 04/28/22 07:36 36.1 04/28/22 07:00 87 21 174/94 (120) 97 Room Air 04/28/22 07:00 87 04/28/22 06:00 36.4 84 20 99 Room Air 04/28/22 05:00 36.3 85 23 128/87 (101) 98 Room Air 04/28/22 04:00 98 Room Air 04/28/22 04:00 36.3 83 21 131/99 (110) 97 Room Air 04/28/22 03:00 36.2 81 20 136/97 (110) 98 Room Air 04/28/22 02:00 37.0 83 29 115/88 (97) 93 Room Air 04/28/22 01:01 89 04/28/22 01:00 38.2 95 27 126/100 (109) 95 Room Air 04/28/22 00:00 39.0 96 22 110/80 (90) 96 Room Air 04/28/22 00:00 97 Room Air 04/27/22 23:00 39.9 99 25 109/74 (86) 94 Room Air 04/27/22 22:00 40.2 109 32 119/81 (94) 96 Room Air 04/27/22 21:25 39.9 04/27/22 21:00 39.6 110 33 125/86 (99) 94 Room Air 04/27/22 20:55 39.5 04/27/22 20:00 97 Room Air 04/27/22 20:00 38.3 112 26 116/92 (100) 95 Room Air 04/27/22 19:24 105 04/27/22 19:00 37.9 101 40 109/83 (92) 98 Room Air 04/27/22 18:00 38.6 112 17 123/94 (104) 98 Room Air 04/27/22 17:00 39.3 109 21 111/93 (99) 98 Room Air 04/27/22 16:00 40.0 111 21 135/94 (108) 98 Room Air 04/27/22 16:00 98 Room Air 04/27/22 15:00 40.3 112 24 131/87 (102) 98 Room Air I & O 04/28/22 07:00 Intake Total 2180 ml Output Total 5950 ml Balance -3770 ml Height & Weight Height: 5'7.00" Weight: 145lbs. 0oz. 65.575205hs; 21.25 BMI Method:Stated General Appearance: Mild Distress, Thin HEENT: PERRL/EOMI, Moist Mucous Membranes; No Scleral Icterus (L), No Scleral Icterus (R) Neck: Normal Inspection, Supple Respiratory: Lungs Clear, No Accessory Muscle Use, No Respiratory Distress Cardiovascular: Regular Rate, Rhythm, No Edema, No JVD, No Murmur, Tachycardia Peripheral Pulses: 1+ Dorsalis Pedis (R), 1+ Left Dors-Pedis (L) (See free te xt) Gastrointestinal: normal bowel sounds, non tender, soft Extremity: Normal Capillary Refill, No Calf Tenderness, No Pedal Edema Neurologic/Psychiatric: Alert, Oriented x3 (exception for month- said Septemeber), No Motor/Sensory Deficits, Other (lethargic) Skin: Mottled (feet, hands, and arms) Results Lab Laboratory Tests 04/27/22 11:10 04/27/22 16:50 04/28/22 04:50 Assessment/Plan Assessment/Plan will give 2 mg IV Haldol and repeat if needed Critical Care: Critically Ill Patient Time spent with patient (mins): 20 CORY JUAREZ MD Apr 28, 2022 14:08
[2022-04-28] MEDS ORDERED: HALOPERIDOL 5 MG/ML (HALDOL) VIAL IM NR (14:30)
[2022-04-28] MEDS: DexMEDEtomidine 250 ML DRIP 250 ML IV SCH ×2 (14:30→17:22)
--- NOTE | 2022-04-28 14:31 | Progress Note ---
Standard Progress Note Progress Notes/Assess & Plan Date Seen by a Provider: Apr 28, 2022 Time Seen by a Provider: 14:31 Progress/Assessment & Plan looking at telemetry, QTc is not prolonged CORY JUAREZ MD Apr 28, 2022 14:31
--- NOTE | 2022-04-28 15:39 | Tele-ICU Progress Note ---
Subjective Date Seen by a Provider: Apr 28, 2022 Time Seen by a Provider: 15:34 Subjective/Events-last exam BP dropped on IV Precedex, will give IVF bolus, also temp back up 38, would cover with abx, IV Vanco, Cefepime, do cultures Will cancel Haldol, not given anyway, because of possibility of NMS, though pt is not rigid Sepsis Event Evaluation Height, Weight, BMI Height: 5'7.00" Weight: 145lbs. 0oz. 65.749995dl; 21.25 BMI Method:Stated Focused Exam Lactate Level 04/27/22 13:40: Lactic Acid Level 1.03 Exam Exam Patient acknowledged, consented, and participated in this virtual visit which was conducted using real time audio/video Vital Signs Date Time Temp Pulse Resp B/P (MAP) Pulse Ox O2 Delivery O2 Flow Rate FiO2 04/28/22 13:00 106 04/28/22 12:54 38.6 04/28/22 12:24 38.2 04/28/22 12:00 98 Room Air 04/28/22 12:00 38.1 106 20 132/89 (103) 97 Room Air 04/28/22 11:52 38.0 04/28/22 11:00 37.6 105 21 128/99 (109) 97 Room Air 04/28/22 10:00 105 39 126/116 (119) 90 Room Air 04/28/22 09:00 95 18 125/74 (91) 99 Room Air 04/28/22 08:00 98 Room Air 04/28/22 08:00 99 24 117/94 (102) 98 Room Air 04/28/22 07:36 36.1 04/28/22 07:00 87 21 174/94 (120) 97 Room Air 04/28/22 07:00 87 04/28/22 06:00 36.4 84 20 99 Room Air 04/28/22 05:00 36.3 85 23 128/87 (101) 98 Room Air 04/28/22 04:00 98 Room Air 04/28/22 04:00 36.3 83 21 131/99 (110) 97 Room Air 04/28/22 03:00 36.2 81 20 136/97 (110) 98 Room Air 04/28/22 02:00 37.0 83 29 115/88 (97) 93 Room Air 04/28/22 01:01 89 04/28/22 01:00 38.2 95 27 126/100 (109) 95 Room Air 04/28/22 00:00 39.0 96 22 110/80 (90) 96 Room Air 04/28/22 00:00 97 Room Air 04/27/22 23:00 39.9 99 25 109/74 (86) 94 Room Air 04/27/22 22:00 40.2 109 32 119/81 (94) 96 Room Air 04/27/22 21:25 39.9 04/27/22 21:00 39.6 110 33 125/86 (99) 94 Room Air 04/27/22 20:55 39.5 04/27/22 20:00 97 Room Air 04/27/22 20:00 38.3 112 26 116/92 (100) 95 Room Air 04/27/22 19:24 105 04/27/22 19:00 37.9 101 40 109/83 (92) 98 Room Air 04/27/22 18:00 38.6 112 17 123/94 (104) 98 Room Air 04/27/22 17:00 39.3 109 21 111/93 (99) 98 Room Air 04/27/22 16:00 40.0 111 21 135/94 (108) 98 Room Air 04/27/22 16:00 98 Room Air I & O 04/28/22 07:00 Intake Total 2180 ml Output Total 5950 ml Balance -3770 ml Height & Weight Height: 5'7.00" Weight: 145lbs. 0oz. 65.849715ta; 21.25 BMI Method:Stated General Appearance: Mild Distress, Thin HEENT: PERRL/EOMI, Moist Mucous Membranes; No Scleral Icterus (L), No Scleral Icterus (R) Neck: Normal Inspection, Supple Respiratory: Lungs Clear, No Accessory Muscle Use, No Respiratory Distress Cardiovascular: Regular Rate, Rhythm, No Edema, No JVD, No Murmur, Tachycardia Peripheral Pulses: 1+ Dorsalis Pedis (R), 1+ Left Dors-Pedis (L) (See free text) Gastrointestinal: normal bowel sounds, non tender, soft Extremity: Normal Capillary Refill, No Calf Tenderness, No Pedal Edema Neurologic/Psychiatric: Alert, Oriented x3 (exception for month- said Septemeber), No Motor/Sensory Deficits, Other (lethargic) Skin: Mottled (feet, hands, and arms) Results Lab Laboratory Tests 04/27/22 11:10 04/27/22 16:50 04/28/22 04:50 Assessment/Plan Assessment/Plan Hold Haldol, give IVF, culture, IV Vanco, Cefepime, CXR Critical Care: Critically Ill Patient Time spent with patient (mins): 30 CORY JUAREZ MD Apr 28, 2022 15:39
[2022-04-28] MEDS ORDERED: NS IV 1000 ML 1,000 ML IV SCH (15:45)
[2022-04-28] MEDS ORDERED: CEFEPIME INJECTION 1,000 MG in NS (IVPB) 50 ML IV NR (16:00)
--- NOTE | 2022-04-28 16:01 | Diagnostic Imaging Report ---
INDICATION: Fever Frontal chest obtained at 0343 p.m. There is no prior study for comparison. Heart is normal in size. There is mild central vascular prominence. There is no overt infiltrate or pneumothorax or pleural fluid. Right-sided PICC line tip overlies mid SVC IMPRESSION: No acute process in the chest. Dictated by: Dictated on workstation # [id number]
[2022-04-28] MEDS ORDERED: VANCOMYCIN INJECTION 1,000 MG in NS (IVPB) 250 ML IV NR (16:30)
[2022-04-28 17:27] LABS: BILIRUBIN,URINE NEGATIVE (NEGATIVE); CLARITY,URINE CLEAR; COLOR,URINE YELLOW; GLUCOSE, URINE (UA) NEGATIVE (NEGATIVE); KETONES,URINE NEGATIVE (NEGATIVE); LEUKOCYTE ESTERASE ,URINE NEGATIVE (NEGATIVE); NITRITE,URINE NEGATIVE (NEGATIVE); PROTEIN,URINE NEGATIVE (NEGATIVE)
[2022-04-28 17:53] LABS: BACTERIA,URINE NEGATIVE /HPF; WBC,URINE RARE /HPF
[2022-04-28 18:30] VITALS: BP 90/63
[2022-04-28] MEDS: ACETAMINOPHEN 325 MG TABLET PO PRN (20:37)
[2022-04-29] MEDS: NS IV 1000 ML 1,000 ML IV SCH ×2 (02:15→09:41)
[2022-04-29 04:28] LABS: HEMOGLOBIN 11.2 g/dL (13.3-17.7)
[2022-04-29 04:30] LABS: MEAN PLATELET VOLUME 9.6 fL (9.0-12.2); WHITE BLOOD COUNT 7.3 10^3/uL (4.3-11.0)
[2022-04-29 04:40] LABS: ALBUMIN 2.3 GM/DL (3.2-4.5)
[2022-04-29 04:42] LABS: CALCIUM 6.8 MG/DL (8.5-10.1)
[2022-04-29 04:43] LABS: TOTAL PROTEIN 4.3 GM/DL (6.4-8.2)
[2022-04-29 04:45] LABS: BILIRUBIN,TOTAL 0.6 MG/DL (0.1-1.0)
[2022-04-29 04:47] LABS: CREATININE SERUM 0.57 MG/DL (0.60-1.30)
[2022-04-29] MEDS: POTASSIUM CL 10MEQ/50ML IVPB 50 ML IV SCH ×5 (05:16→09:22)
[2022-04-29] MEDS: KCL 20 MEQ TAB (K-DUR) PO SCH (05:16)
[2022-04-29 05:31] LABS: PHOSPHORUS 1.3 MG/DL (2.3-4.7)
[2022-04-29 05:33] LABS: MAGNESIUM 1.6 MG/DL (1.6-2.4)
[2022-04-29] MEDS: MAGNESIUM 1 GM/100 ML IVPB 100 ML IV SCH ×2 (05:39→06:16)
[2022-04-29] MEDS: LORazepam INJ 2 MG/ML (ATIVAN) VIAL IVP PRN ×3 (06:15→07:13)
[2022-04-29] MEDS: IBUPROFEN 600 MG (MOTRIN) TAB PO SCH ×3 (06:23→12:51)
[2022-04-29] MEDS ORDERED: LORazepam INJ 2 MG/ML (ATIVAN) VIAL ONE (07:13)
--- NOTE | 2022-04-29 07:28 | Tele-ICU Progress Note ---
Subjective Date Seen by a Provider: Apr 29, 2022 Time Seen by a Provider: 07:23 Subjective/Events-last exam called for continued agitation, pulling at lines. Yesterday given IV Precedex which dropped BP to 70/40, Already given 1 mg IV Ativan which did not help much, Due to concerns pt may have had NMS will not give anti-psychotics, Ingested mineral bath salts before admission. Potassium and Magnesium are low and have been replaced CXR from yesterday ok, Has been afebrile, GIven one dose of IV Vanco, Cefepime, plt count down to 89k, from IV Vanco? Blood and urine cultures ordered but I don't see drawn Started on oral phenobarbiral but will not taking pills Sepsis Event Evaluation Height, Weight, BMI Height: 5'7.00" Weight: 145lbs. 0oz. 65.336246ug; 22.26 BMI Method:Stated Focused Exam Lactate Level 04/27/22 13:40: Lactic Acid Level 1.03 04/28/22 16:20: Lactic Acid Level 0.88 Exam Exam Patient acknowledged, consented, and participated in this virtual visit which was conducted using real time audio/video Vital Signs Date Time Temp Pulse Resp B/P (MAP) Pulse Ox O2 Delivery O2 Flow Rate FiO2 04/29/22 06:00 117 11 132/62 (85) 98 Room Air 04/29/22 05:00 103 12 120/84 (96) 98 Room Air 04/29/22 04:00 105 16 119/89 (99) 99 Room Air 04/29/22 03:54 99 Room Air 04/29/22 03:30 37.1 04/29/22 03:00 104 16 98/61 (73) 99 Room Air 04/29/22 02:00 104 20 94/60 (71) 99 Room Air 04/29/22 01:00 107 23 94/62 (73) 99 Room Air 04/29/22 01:00 105 04/29/22 00:00 101 21 104/64 (77) 99 Room Air 04/29/22 00:00 99 Room Air 04/28/22 23:00 37.7 100 25 110/92 (98) 99 Room Air 04/28/22 22:00 37.9 95 17 86/57 (67) 98 Room Air 04/28/22 21:07 38.2 04/28/22 21:00 38.1 97 25 88/55 (66) 100 Room Air 04/28/22 20:37 38.1 04/28/22 20:00 96 Room Air 04/28/22 20:00 38.0 98 25 104/81 (89) 95 Room Air 04/28/22 19:00 94 04/28/22 19:00 37.7 99 24 112/79 (90) 93 Room Air 04/28/22 18:30 89 90/63 04/28/22 18:15 37.7 89 97 96 Room Air 04/28/22 18:00 37.6 87 21 90/63 (72) Room Air 04/28/22 17:45 37.6 103 22 95/67 (76) Room Air 04/28/22 17:30 37.6 88 21 91/63 (72) Room Air 04/28/22 17:15 37.7 87 20 70/54 (59) Room Air 04/28/22 17:00 37.5 102 17 78/51 (60) 93 Room Air 04/28/22 16:45 37.4 93 16 104/95 (98) 99 Room Air 04/28/22 16:30 37.4 93 18 109/82 (91) 98 Room Air 04/28/22 16:15 37.3 92 19 106/82 (90) 98 Room Air 04/28/22 16:00 37.3 90 20 101/78 (86) 98 Room Air 04/28/22 16:00 98 Room Air 04/28/22 15:58 106 132/89 04/28/22 15:45 37.3 82 20 87/65 (72) 97 Room Air 04/28/22 15:30 37.4 80 22 71/44 (53) 95 Room Air 04/28/22 15:15 37.6 82 23 74/42 (53) 95 Room Air 04/28/22 15:00 37.7 84 22 75/44 (54) 95 Room Air 04/28/22 14:45 37.9 90 30 67/49 (55) 95 Room Air 04/28/22 14:30 37.9 99 21 81/55 (64) 97 Room Air 04/28/22 14:30 106 101/78 04/28/22 14:15 111 20 101/74 (83) 96 Room Air 04/28/22 14:00 38.1 109 26 101/69 (80) 96 Room Air 04/28/22 13:00 38.6 106 28 116/76 (89) 95 Room Air 04/28/22 13:00 106 04/28/22 12:54 38.6 04/28/22 12:24 38.2 04/28/22 12:00 98 Room Air 04/28/22 12:00 38.1 106 20 132/89 (103) 97 Room Air 04/28/22 11:52 38.0 04/28/22 11:00 37.6 105 21 128/99 (109) 97 Room Air 04/28/22 10:00 105 39 126/116 (119) 90 Room Air 04/28/22 09:00 95 18 125/74 (91) 99 Room Air 04/28/22 08:00 98 Room Air 04/28/22 08:00 99 24 117/94 (102) 98 Room Air 04/28/22 07:36 36.1 I & O 04/29/22 07:00 Intake Total 2610 ml Output Total 2600 ml Balance 10 ml Height & Weight Height: 5'7.00" Weight: 145lbs. 0oz. 65.568246cb; 22.26 BMI Method:Stated General Appearance: Mild Distress, Thin HEENT: PERRL/EOMI, Moist Mucous Membranes; No Scleral Icterus (L), No Scleral Icterus (R) Neck: Normal Inspection, Supple Respiratory: Lungs Clear, No Accessory Muscle Use, No Respiratory Distress Cardiovascular: Regular Rate, Rhythm, No Edema, No JVD, No Murmur, Tachycardia Peripheral Pulses: 1+ Dorsalis Pedis (R), 1+ Left Dors-Pedis (L) (See free text) Gastrointestinal: normal bowel sounds, non tender, soft Extremity: Normal Capillary Refill, No Calf Tenderness, No Pedal Edema Neurologic/Psychiatric: Alert, Oriented x3 (exception for month- said Septem feliberto), No Motor/Sensory Deficits, Other (knows place, name and time, but is confused at times) Skin: Mottled (feet, hands, and arms) Results Lab Laboratory Tests 04/27/22 11:10 04/27/22 16:50 04/28/22 04:50 04/29/22 04:19 Assessment/Plan Assessment/Plan Continue agitation, from bath salts?, will give another 2 mg IV Ativan-given and did calm him down monitor BP rightnow 97/61, give IVF if BP falls Not clear if telepsych is available. Critical Care: Critically Ill Patient Time spent with patient (mins): 35 CORY JUAREZ MD Apr 29, 2022 07:28
[2022-04-29] MEDS ORDERED: LORazepam INJ 2 MG/ML (ATIVAN) VIAL IVP ONE (07:45)
--- NOTE | 2022-04-29 08:14 | Progress Note - Hospitalist ---
Subjective HPI/CC On Admission Date Seen by Provider: Apr 29, 2022 Patient is a 31-year-old male with past medical history of polysubstance abuse who presented to the emergency department due to malaise and fever. He tells me that he "feels like shit." And is unable to elaborate further. The PA at the [facility] emergency room stated that he presented from the [facility] custod[facility] after being picked up the day before. He was found to be quite febrile with a temperature of 38-39 there. He was worked up extensively for infection without a source being found. Despite treatment for his fever his temperature continued to rise. She denied any confusion or muscle rigidity at the time. He was transferred here to the ICU for further work-up. On my exam he is able to answer simple questions and just states that he does not feel well. He is oriented to everything but the month. He was quite hypotensive on arrival with a blood pressure of 67/32 but responded to IV fluids and came up to 1 teens systolically. He does endorse a history of meth use. He states he did bath salts yesterday with meth in it. He denies IV drug use and states that he smokes it. Subjective/Events-last exam Pt was very agitated this AM. Discussed with RN. Required multiple doses of Ativan (avoid antipsychotics due to NMS). Unable to tolerate Precedex due to hypotension. Quite sleepy now. Briefly opened eyes but did not participate in exam. Focused Exam Lactate Level 04/27/22 13:40: Lactic Acid Level 1.03 04/28/22 16:20: Lactic Acid Level 0.88 Objective Exam Vital Signs Vital Signs Date Time Temp Pulse Resp B/P (MAP) Pulse Ox O2 Delivery O2 Flow Rate FiO2 04/29/22 07:00 108 04/29/22 06:00 11 132/62 (85) 98 Room Air 04/29/22 03:30 37.1 Capillary Refill : General Appearance: No Apparent Distress (drowsy), Thin Respiratory: Lungs Clear, No Respiratory Distress Cardiovascular: Regular Rate, Rhythm, No Murmur Gastrointestinal: Normal Bowel Sounds, Soft Genital/Rectal: Other (dickens in place) Neurologic/Psychiatric: Alert (opened eyes when spoken to but fell back asleep quickly) Results/Procedures Lab Laboratory Tests 04/29/22 04:19 Patient resulted labs reviewed. Assessment/Plan Assessment and Plan Assess & Plan/Chief Complaint Neuroleptic Malignant Syndrome Polysubstance abuse Hypotension History of Alcohol Abuse Continue Ativan Dantrolene given x2 doses Temperature back up yesterday to 38.2 max and resolved today Continue Thiamine Remain in ICU Liver enzymes improving Avoid antipsychotics as able due to NMS Concerning now for alcohol withdrawal syndrome so will add phenobarbital to help control Hypokalemia Hypophosphatemia Replace per protocol DVT ppx: Lovenox Critical Care Critically Ill Patient Diagnosis/Problems Diagnosis/Problems (1) Neuroleptic malignant syndrome (2) Methamphetamine use (3) Bath salt overdose (4) Polysubstance abuse Status: Acute (5) Alcohol abuse Status: Acute STEVEN GOSS MD Apr 29, 2022 08:14
[2022-04-29] MEDS: NICOTINE 14 MG (NICODERM) PATCH TD SCH (08:27)
[2022-04-29] MEDS: PHENobarbital 64.8 MG (1 GRAIN) TAb PO SCH ×2 (08:27→09:47)
[2022-04-29] MEDS: THIAMINE 100 MG (VITAMIN B-1) TAB PO SCH ×2 (08:28→09:47)
[2022-04-29] MEDS ORDERED: NICOTINE PATCH REMOVAL TP SCH (08:59)
[2022-04-29] MEDS: ENOXAPARIN 40 MG/0.4 ML (LOVENOX) SYR SQ SCH (09:25)
--- NOTE | 2022-04-29 13:34 | Discharge Summary ---
Diagnosis/Chief Complaint Date of Admission Apr 27, 2022 at 10:25 Date of Discharge Admission Diagnosis Fever Primary Care No,Local Physician Discharge Diagnosis (1) Neuroleptic malignant syndrome (2) Methamphetamine use (3) Bath salt overdose (4) Polysubstance abuse Status: Acute (5) Alcohol abuse Status: Acute Discharge Summary Discharge Physical Exam Allergies: Coded Allergies: No Known Drug Allergies (Unverified , 11/15/16) Vitals & I&Os Vital Signs Date Time Temp Pulse Resp B/P (MAP) Pulse Ox O2 Delivery O2 Flow Rate FiO2 04/29/22 12:41 102 04/29/22 12:00 99 Room Air 04/29/22 12:00 37.0 04/29/22 11:00 97/67 (77) 04/29/22 07:00 24 General Appearance: No Apparent Distress, Thin Respiratory: Lungs Clear, No Respiratory Distress Cardiovascular: Regular Rate, Rhythm, No Murmur Skin: Tattoos/Piercings Neurologic/Psychiatric: Alert, Oriented x3 Hospital Course Labs (last 24 hrs) Microbiology 04/28/22 Urine Culture - Preliminary, Resulted Staphylococcus aureus 04/28/22 Blood Culture - Preliminary, Resulted Staphylococcus aureus Susceptibility To Follow 04/27/22 MRSA Screen - Final, Complete MRSA not isolated Patient resulted labs reviewed. Discussion & Recommendations Discharge Planning: <30 minutes discharge planning Discharge Home Medications: Active Scripts Active No Active Prescriptions or Reported Medications Instructions to patient/family Please see electronic discharge instructions given to patient. STEVEN GOSS MD Apr 29, 2022 13:34
--- NOTE | 2022-04-30 12:27 | Discharge Summary ---
Diagnosis/Chief Complaint Date of Admission Apr 27, 2022 at 10:25 Date of Discharge Apr 29, 2022 at 13:48 Admission Diagnosis Fever Primary Care No,Local Physician Discharge Diagnosis (1) Neuroleptic malignant syndrome (2) Methamphetamine use (3) Bath salt overdose (4) Polysubstance abuse Status: Acute (5) Alcohol abuse Status: Acute Discharge Summary Discharge Physical Exam Allergies: Coded Allergies: No Known Drug Allergies (Unverified , 11/15/16) Vitals & I&Os Vital Signs Date Time Temp Pulse Resp B/P (MAP) Pulse Ox O2 Delivery O2 Flow Rate FiO2 04/29/22 12:41 102 04/29/22 12:00 99 Room Air 04/29/22 12:00 37.0 04/29/22 11:00 97/67 (77) 04/29/22 07:00 24 General Appearance: No Apparent Distress, Thin Respiratory: Lungs Clear, No Respiratory Distress Cardiovascular: Regular Rate, Rhythm, No Murmur Neurologic/Psychiatric: Alert, Oriented x3 Hospital Course Patient was admitted to the hospital secondary to neuroleptic malignant syndrome. He was treated with IV Ativan and dantrolene. His temperature improved. He then developed recurrent fever and blood cultures were obtained. He was also treated for alcohol withdrawal syndrome given his history of alcohol abuse. He was only intermittently compliant with treatment. He refused most oral medications. He was treated with IV vancomycin and cefepime due to the recurrent fevers. His mentation improved and unfortunately he elected to leave AGAINST MEDICAL ADVICE. He was alert and oriented x4 and stated he just wanted to go to his grandma's house. He signed AMA paperwork. Shortly after he left his blood cultures results were available revealing 2 tubes positive for staph aureus. I personally attempted to call him multiple times at the numbers listed in the chart to inform him to return to the emergency department for IV antibiotics. The first number stated that the user was no longer in service. The second number rang busy every time I called it. Labs (last 24 hrs) Microbiology 04/28/22 Urine Culture - Preliminary, Resulted Staphylococcus aureus 04/28/22 Blood Culture - Preliminary, Resulted Staphylococcus aureus Susceptibility To Follow 04/27/22 MRSA Screen - Final, Complete MRSA not isolated Patient resulted labs reviewed. Discussion & Recommendations Discharge Planning: >30 minutes discharge planning Discharge Home Medications: Active Scripts Active No Active Prescriptions or Reported Medications Instructions to patient/family Please see electronic discharge instructions given to patient. STEVEN GOSS MD Apr 30, 2022 12:27
--- NOTE | 2022-05-02 10:02 | Physician Query Clarification ---
PQ-Intro New Diagnosis Admission/Discharge Admission Date: Apr 27, 2022 at 10:25 Discharge Date: Apr 29, 2022 at 13:48 Dr. Moore, The medical record reflects the following clinical scenario: History/Risk Factors: bath salts overdose, Malignant neuroleptic syndrome, hypotension, fever Clinical Findings: T 39.9, blood cultures results revealing 2 tubes positive for staph aureus. Treatment: IV Cefepime, IV Vancomycin Question: What condition best reflects the above clinical scenario? Please document a response in the Progress Noter or Discharge Summary. 1. staph aureus sepsis present on admission 2. staph aureus sepsis developed after admission 3. staph aureus bacteremia present on admission 4. staph aureus bacteremia developed after admission 5.. Other, with explanation of the clinical findings. 6. Clinically undetermined, no explanation for the clinical findings. PHYSICIAN RESPONSE What condition reflects above: 1 In responding to this query, please exercise your independent professional judgment. The purpose of this communication is to more accurately reflect the complexity of your patients condition. The fact that a question is asked does not imply that any particular answer is desired or expected. Thank you for your timely response to this clarification. Requestors name: Nelson THIS PHYSICIAN QUERY FORM IS A PERMANENT PART OF THE MEDICAL RECORD NELSON BOSTON May 02, 2022 10:02 STEVEN MOORE MD May 10, 2022 08:59
== END 2022-04-29 13:48 | disposition left against medical advice (07) | DRG 871 ==
LOC: ICU 10:25
PROVIDERS: ADMIT Family Medicine; ATTEND Family Medicine
DX: A41.01 Sepsis due to Methicillin susceptible Staphylococcus aureus (principal); G21.0 Malignant neuroleptic syndrome; F10.239 Alcohol dependence with withdrawal, unspecified; T43.691A Poisoning by other psychostimulants, accidental (unintentional), initial encounter; F15.10 Other stimulant abuse, uncomplicated; I95.9 Hypotension, unspecified; F41.9 Anxiety disorder, unspecified; F31.9 Bipolar disorder, unspecified; F20.9 Schizophrenia, unspecified; E87.6 Hypokalemia; E83.39 Other disorders of phosphorus metabolism; Z59.00 Homelessness unspecified
CPT/HCPCS: 36415; 36569; 71045; 76937; 80048; 80053; 80076; 81000; 82550; 82553; 82805; 83605; 83735; 84100; 84484; 85007; 85027; 85379; 85384; 85610; 85730; 87040; 87077; 87081; 87088; 87186